=== PATIENT | female | born 1970 | race Caucasian/White ===

== ENCOUNTER → 2016-11-12 08:15 | Day surgery (SDC) | payer BC ==
[~2016-11-12 08:15] MED LIST: Acetaminophen TAB* 325 MG PO PRN; Buffered Lidocaine 1% SYR 3ML* 3 ML/SYR SYRINGE INTRADERM ONE; Buffered Lidocaine 1% SYR 3ML* 3 ML/SYR SYRINGE ONE; Flurbiprofen 0.03% OPTH.SOL* 2.5 ML BTL ONE; Lidocaine 1% MPF* 2 ML VIAL ONE; Lidocaine 2% EPI 1:200000 MPF* 20 ML VIAL ONE; Midazolam* 1 MG/ML 2 ML VIAL (2 MG) ONE; Neomycin/Polymy/Dex OPTH.SUSP* MAXITROL 0.1% 5 ML ONE; Phenylephrine 2.5% OPTH.SOL* 2 ML BTL ONE; Povidone Iodine 5% OPTH* 30 ML BTL ONE; Proparacaine 0.5% OPHTH.SOL* 15 ML BTL ONE; acetaZOLAMIDE TAB* 250 MG ONE; fentaNYL* 50 MCG/ML 2 ML VIAL (100 MCG VIAL) ONE
[2016-11-12 11:46] VITALS: BP 105/71
--- NOTE | 2016-11-12 22:57 | OP ---
DATE OF OPERATION: 11/12/16 - [facility] DATE OF : 68 SURGEON: Kamari Holland M.D. PREOPERATIVE DIAGNOSIS: Cataract, right eye. POSTOPERATIVE DIAGNOSIS: Cataract, right eye. OPERATIVE PROCEDURE: Phacoemulsification, right eye, with IOL, and iStent. DESCRIPTION OF PROCEDURE: The patient was brought to the operating room after being given 1/2% Alcaine with epinephrine drops in the preoperative area. The eye was prepped and draped in the usual sterile fashion. Sterile drape and eyelid speculum were placed. Again, topical 1/2% Alcaine with epinephrine was given. A paracentesis incision was made at the 9 o'clock position with the No.75 blade. Clear cornea incision 2.2 x 2.2-mm was created at the 12 o'clock position starting at the anterior limbus using the 2.2-mm keratome. The anterior chamber was irrigated with 0.4 mL of 1% non-preservative intracameral lidocaine and filled with DisCoVisc. A capsulorrhexis was completed using the cystotome and the Utrata forceps. Hydrodissection was performed with balanced salt solution. The lens nucleus was removed with the Phacoemulsification handpiece without incident. Cortex was removed with the irrigation-aspiration handpiece. The capsular bag was re-inflated using DisCoVisc and an SN60WF 19- diopter implant was inserted with the shooter followed by a Glaukos iStent GTS- 100L inserted into the trabecular meshwork at the 3 o'clock position with a shooter. The irrigation-aspiration handpiece was used to remove all residual DisCoVisc. The eye was refilled with balanced salt solution and the wound checked and found to be watertight. Topical Maxitrol drops were given. [id number]/[facility] #: [id number] [facility]EN'[facility] HOSPITALSregio
== END | disposition home or self-care (01) ==
LOC: OREAST 08:15
PROVIDERS: ATTEND Specialist
DX: H25.11 Age-related nuclear cataract, right eye (principal); H40.1132 Primary open-angle glaucoma, bilateral, moderate stage; J45.909 Unspecified asthma, uncomplicated; Z68.31 Body mass index [BMI] 31.0-31.9, adult; Z85.71 Personal history of Hodgkin lymphoma
CPT/HCPCS: A9270-GY; C1783; J2250; J3010; V2632

== ENCOUNTER 2018-08-12 09:02 | Emergency (ER) | payer BC ==
[2018-08-12] MEDS ORDERED: Ondansetron ODT TAB* 4 MG PO ONE (09:37)
--- NOTE | 2018-08-12 09:41 | ED ---
Head Injury - HPI Summary HPI Summary: 48 y/o female presents to ED c/o constant, moderate to severe NEUMANN starting 2 days ago s/p fall. Pt lost balance while walking into a store, fell backwards and hit her head on a car. No LOC. NEUMANN located at the back of the head on the R side. Associated sx: nausea, bilateral arm weakness, "doesn't feel right". Denies neck pain. Pain rated 6/10 in severity. - History Of Current Complaint Chief Complaint: EDHeadInjury Stated Complaint: HEAD INJURY Time Seen by Provider: 08/12/18 09:31 Hx Obtained From: Patient Mechanism Of Injury: Fall From A Standing Position Onset/Duration: Started Days Ago Onset of Pain: Immediate Pain Intensity: 6 Pain Scale Used: 0-10 Numeric Location of Head Injury: Occipital Associated Signs And Symptoms: Nausea, Other: - Weakness in arms - Allergies/Home Medications Allergies/Adverse Reactions: Allergies Allergy/AdvReac Type Severity Reaction Status Date / Time MS Levofloxacin Allergy Mild See Comment Verified 11/12/16 08:49 [From Levaquin] MS Amoxicillin Allergy Rash Verified 11/12/16 08:49 [From Augmentin] MS Cefaclor [From Ceclor] Allergy Rash Verified 11/12/16 08:49 MS Cefuroxime [From Ceftin] Allergy Rash Verified 11/12/16 08:49 MS Clavulanic Acid Allergy Rash Verified 11/12/16 08:49 [From Augmentin] MS Ibuprofen [From Motrin] Allergy Anaphylatic Verified 11/12/16 08:49 Shock MS Loracarbef [From Lorabid] Allergy Rash Verified 11/12/16 08:49 MS Penicillin G Allergy Anaphylatic Verified 11/12/16 08:49 [Penicillin G] Shock MS Sulfamethoxazole Allergy See Comment Verified 11/12/16 08:49 w/Trimethoprim [From Bactrim] MS Theophylline Allergy Rash Verified 11/12/16 08:49 [Theophylline] iv contrast dye Allergy Severe Difficulty Uncoded 11/06/16 13:01 Breathing VISINE Allergy Intermediate Swelling Uncoded 11/06/16 13:01 Home Medications: Home Medications Netarsudil Mesylate [Rhopressa] 1 drop RIGHT EYE QPM 08/12/18 [History Confirmed 08/12/18] PMH/Surg Hx/FS Hx/Imm Hx Previously Healthy: No Endocrine/Hematology History: Reports: Other Endocrine/Hematological Disorders - Hodgkin's Denies: Hx Anticoagulant Therapy, Hx Diabetes, Hx Thyroid Disease Cardiovascular History: Denies: Hx Hypertension, Hx Pacemaker/ICD, Other Cardiovascular Problems/ Disorders Respiratory History: Reports: Hx Asthma - PATIENT STATES WELL CONTROLLED, Hx Seasonal Allergies Denies: Hx Chronic Obstructive Pulmonary Disease (COPD), Other Respiratory Problems/Disorders GI History: Denies: Other GI Disorders History: Denies: Hx Renal Disease Musculoskeletal History: Reports: Hx Back Problems - chronic low back pain, Hx Orthopedic Injury - (right) knee ACL surgery Denies: Other Musculoskeletal History Sensory History: Reports: Hx Cataracts - BILATERAL, Hx Contacts or Glasses - CAN 'T SEE WITHOUT GLASSES, Hx Glaucoma - GLAUCOMA IN BOTH EYES Denies: Hx Hearing Aid Opthamlomology History: Reports: Hx Cataracts - BILATERAL, Hx Contacts or Glasses - CAN'T SEE WITHOUT GLASSES, Hx Glaucoma - GLAUCOMA IN BOTH EYES Neurological History: Reports: Hx Seizures - LAST SEIZURE- 10/09/2016- [facility] -, Other Neuro Impairments/Disorders - METABOLIC SEIZURES Denies: Hx Dementia Psychiatric History: Denies: Hx Substance Abuse - Cancer History Cancer Type, Location and Year: DX. WITH NANCY DISEASE ABOUT 13YEARS AGO Hx Chemotherapy: Yes - [facility]- IN REMISSION X 16 YEARS Hx Radiation Therapy: No - Surgical History Surgery Procedure, Year, and Place: RIGHT Ankle surgery X - [facility]. RIGHT foot surgery[place]. [place] [facility] [place] [facility] [place] [facility]. RIGHT EYE TRAB[place]OM[place] [facility] [place] AND LEFT. 11/2015-RIGHT EYE TRABEC[place]LECTOMY[place] [facility] [place] Hx Anesthesia Reactions: No - Immunization History Date of Tetanus Vaccine: UNKOWN Immunizations Up to Date: Yes Infectious Disease History: No Infectious Disease History: Denies: Hx Hepatitis, Hx Human Immunodeficiency Virus (HIV), Traveled Outside the [place] in Last 30 Days - Social History Alcohol Use: None Hx Substance Use: No Substance Use Type: Reports: None Hx Tobacco Use: No Smoking Status (MU): Never Smoked Tobacco Have You Smoked in the Last Year: No Review of Systems Constitutional: Negative Eyes: Negative Negative: Blurred Vision ENT: Negative Cardiovascular: Negative Respiratory: Negative Positive: Nausea. Negative: Abdominal Pain, Vomiting Genitourinary: Negative Musculoskeletal: Negative Skin: Negative Positive: Headache, Weakness - arms Psychological: Normal All Other Systems Reviewed And Are Negative: Yes Physical Exam - Summary Physical Exam Summary: VITAL SIGNS: Reviewed. GENERAL: Patient is a well-developed and nourished female who is lying comfortable in the stretcher. Patient is not in any acute respiratory distress. HEAD AND FACE: No signs of trauma. No ecchymosis, hematomas or skull depressions. No sinus tenderness. EYES: PERRLA, EOMI x 2, No injected conjunctiva, no nystagmus. EARS: Hearing grossly intact. Ear canals and tympanic membranes are within normal limits. MOUTH: Oropharynx within normal limits. NECK: Supple, trachea is midline, no adenopathy, no JVD, no carotid bruit, no c- spine tenderness, neck with full ROM. CHEST: Symmetric, no tenderness at palpation LUNGS: Clear to auscultation bilaterally. No wheezing or crackles. CVS: Regular rate and rhythm, S1 and S2 present, no murmurs or gallops appreciated. ABDOMEN: Soft, non-tender. No signs of distention. No rebound no guarding, and no masses palpated. Bowel sounds are normal. EXTREMITIES: FROM in all major joints, no edema, no cyanosis or clubbing. NEURO: Alert and oriented x 3. No acute neurological deficits. Speech is normal and follows commands. SKIN: Dry and warm GCS Scale: 15 Triage Information Reviewed: Yes Vital Signs On Initial Exam: Initial Vitals Temp Pulse Resp BP Pulse Ox 97.4 F 58 19 119/78 100 08/12/18 09:22 08/12/18 09:22 08/12/18 09:22 08/12/18 09:22 08/12/18 09:22 Vital Signs Reviewed: Yes Diagnostics - Vital Signs Vital Signs Temp Pulse Resp BP Pulse Ox 08/12/18 09:22 97.4 F 58 19 119/78 100 - Laboratory Lab Statement: Any lab studies that have been ordered have been reviewed, and results considered in the medical decision making process. - CT BRAIN CT CT Interpretation: No Acute Changes - No acute intracranial pathology CT Interpretation Completed By: Radiologist - ED physician reviews and agrees Head Injury Course/Dx Assessment/Plan: 48 y/o female presents to ED c/o constant, moderate to severe NEUMANN starting 2 days ago s/p fall. Pt lost balance while walking into a store, fell backwards and hit her head on a car. No LOC. NEUMANN located at the back of the head on the R side. Associated sx: nausea, bilateral arm weakness, "doesn't feel right". Denies neck pain. Pain rated 6/10 in severity. In the ED course and the patient was given Zofran for nausea. She reports no vomiting. Head CT impression: No acute intracranial pathology. The patient continues to be neurological intact and she has no acute neurological focal deficits. The patient is ambulating good steady walk and she doesnt have any ataxia. I discussed all the findings and test results with the patient. Patient was instructed to return to the emergency room immediately if any of the symptoms return or worsens. Plan of care was discussed with the patient and understands and agrees. All questions were answered at patient satisfaction. There were no further complaints or concerns. Lung exam before discharge: CTA B/L. Good air exchange. No wheezing or crackles heard. CVS: S1 and S2 present. No murmurs appreciated. Patient is alert and oriented x 3. Patient is hemodynamically stable. Patient will be discharged home with follow up PCP in the next 2-3 days - Diagnoses Differential Diagnosis/HQI/PQRI: Cerebral Contusion, Cervical Sprain, Concussion Without LOC, Contusion, Hematoma, Intracranial Bleed, Skull Fracture Provider Diagnoses: Head contusion Discharge - Sign-Out/Discharge Documenting (check all that apply): Patient Departure - Discharge Plan Condition: Stable Disposition: HOME Prescriptions: Ondansetron TAB* [Zofran 4 MG Tab*] 4 mg PO Q6H PRN #10 tab PRN Reason: Nausea Patient Education Materials: Head Injury (ED), Contusion in Adults (ED) Forms: *Work Release Referrals: Tish Burt MD [Primary Care Provider] - Additional Instructions: RETURN TO THE ED FOR WORSENING SYMPTOMS - Billing Disposition and Condition Condition: STABLE Disposition: Home - Attestation Statements Document Initiated by Edelmiraibalisha: Yes Documenting Scribe: Praneeth Evans Provider For Whom Abhijeet is Documenting (Include Credential): Yunior Duarte MD Scribe Attestation: Praneeth Pulido, scribed for Yunior Duarte MD on 08/12/18 at 1345. Scribe Documentation Reviewed: Yes Provider Attestation: The documentation as recorded by the Praneeth pepe accurately reflects the service I personally performed and the decisions made by me, Yunior Duarte MD
--- NOTE | 2018-08-12 10:00 | RAD ---
HISTORY: Headache COMPARISONS: August 05, 2012, MRI of the head dated December 27, 2004 TECHNIQUE: Multiple contiguous axial CT scans were obtained of the head without intravenous contrast. FINDINGS: HEMORRHAGE/INFARCT: There is no hemorrhage or acute infarct. MASSES/SHIFT: There is no mass or shift. EXTRA-AXIAL SPACES: There are no extra-axial fluid collections. SULCI AND VENTRICLES: The sulci and ventricles are normal in size and position for the patient's stated age. CEREBRUM: There are no focal parenchymal abnormalities. BRAINSTEM: There are no focal parenchymal abnormalities. CEREBELLUM: There are no focal parenchymal abnormalities. VESSELS: The vessels are grossly normal. PARANASAL SINUSES: The paranasal sinuses are clear. ORBITS: The orbits are unremarkable. BONES AND SOFT TISSUE: No bone or soft tissue abnormalities are noted. OTHER: None IMPRESSION: NO ACUTE INTRACRANIAL PATHOLOGY.
[2018-08-12 11:01] VITALS: BP 130/81
== END 2018-08-12 11:00 | disposition home or self-care (01) ==
LOC: ED 09:02
DX: S00.03XA Contusion of scalp, initial encounter (principal); M54.5 Low back pain; G89.29 Other chronic pain; W19.XXXA Unspecified fall, initial encounter; Y92.9 Unspecified place or not applicable; Z85.71 Personal history of Hodgkin lymphoma
CPT/HCPCS: 70450; 99282; A9270-GY

== ENCOUNTER 2018-10-13 07:16 | Day surgery (SDC) | payer BC ==
[~2018-10-13 07:16] MED LIST changes: -Acetaminophen TAB* 325 MG PO PRN; +Acetylcholine 1:100 OPTH* OPHTH.SOLN ONE; +Atropine 1% OPHTH.SOL* 2 ML BOT - 2 ML ONE; +BSS OPTH.SOL* BTL ONE; +Buffered Lidocaine 0.9% SYRIN* 5 ML/SYR SYRINGE INTRADERM ONE; -Buffered Lidocaine 1% SYR 3ML* 3 ML/SYR SYRINGE INTRADERM ONE; -Buffered Lidocaine 1% SYR 3ML* 3 ML/SYR SYRINGE ONE; +Bupivacaine 0.25% SDV PF* 10 ML VIAL INJ ONE; +Dexamethasone IV* 4 MG/ML 1 ML (4 MG) IV SLOW PU ONE; +Dexamethasone IV* 4 MG/ML 1 ML (4 MG) ONE; +Famotidine IV* 10 MG/ML 2 ML (20 mg) IV ONE; +Famotidine IV* 10 MG/ML 2 ML (20 mg) ONE; -Flurbiprofen 0.03% OPTH.SOL* 2.5 ML BTL ONE; +Hyaluronidase OVINE* 200 UNIT/ML ML SUBCUT ONE; -Lidocaine 1% MPF* 2 ML VIAL ONE; -Lidocaine 2% EPI 1:200000 MPF* 20 ML VIAL ONE; +Lidocaine 2% EPI 1:200000 MPF*10-20 ML VIAL ONE; -Midazolam* 1 MG/ML 2 ML VIAL (2 MG) ONE; -Phenylephrine 2.5% OPTH.SOL* 2 ML BTL ONE; +Sodium Bicarbonate 8.4% SYR* 10 ML SYRINGE ONE; +Triamcinolone Acetonide* 40 MG/ML 1 ML VIAL ONE; -acetaZOLAMIDE TAB* 250 MG ONE; -fentaNYL* 50 MCG/ML 2 ML VIAL (100 MCG VIAL) ONE
[2018-10-13] MEDS ORDERED: Bupivacaine 0.25% SDV PF* 10 ML VIAL INJ ONE (08:00)
[2018-10-13] MEDS ORDERED: Midazolam* 1 MG/ML 2 ML VIAL (2 MG) ONE (08:20)
[2018-10-13] MEDS ORDERED: Ondansetron INJ* 2 MG/ML VIAL ONE (08:32)
[2018-10-13] MEDS ORDERED: fentaNYL* 50 MCG/ML 2 ML VIAL (100 MCG VIAL) ONE (08:32)
[2018-10-13] MEDS ORDERED: Propofol* 10 MG/ML 20 ML BTL ONE (08:32)
[2018-10-13] MEDS ORDERED: Naloxone* 0.4 MG/ML 1 ML VIAL IV PRN (10:13)
[2018-10-13 10:16] VITALS: BP 111/61
--- NOTE | 2018-10-13 13:01 | OP ---
DATE OF OPERATION: 10/13/18 [facility] DATE OF : 68 SURGEON: Kamari Holland MD ANESTHESIA: Local with MAC. PRE-OP DIAGNOSIS: Uncontrolled glaucoma, right eye. POST-OP DIAGNOSIS: Uncontrolled glaucoma, right eye. OPERATIVE PROCEDURE: Ahmed valve with donor sclera right eye. COMPLICATIONS: None. DESCRIPTION OF PROCEDURE: The patient was given retrobulbar anesthesia in the operating room, a 50:50 mixture of 0.25 Marcaine and 2% lidocaine with epinephrine and Vitrase 4 cc injected into the muscle cone without difficulty. A 6-0 silk superior limbal traction suture placed and the eye was rotated inferiorly. A fornix-based conjunctival peritomy was performed from the 10 o' clock to 12 o'clock position with Marty scissors. Hemostasis was achieved with cautery. The SP7 Ahmed valve was placed on the bare sclera and the footplate suture to bare sclera approximately 10 mm posterior to the limbus. Anterior chamber entered using a 27-gauge needle at the 11 o'clock position. Tube trimmed and placed into the anterior chamber. Tube sutured at the sclera with two 10-0 Prolene sutures and the donor sclera cut to cover the tube and sutured in place with four interrupted 10-0 nylon sutures. The incision was closed using a running locking 10-0 nylon suture and a running locking 10-0 Vicryl suture. After this was completed and the anterior chamber refilled, I felt like the tube was too close to the cornea, so the incision was reopened, the tube repositioned more posteriorly and trimmed a little bit, and the incision closed again in the same manner. Topical atropine and Maxitrol were given. The traction sutures removed and the eye was thoroughly patched. [id number]/[facility] #: [id number] MTDD
== END 2018-10-13 10:27 | disposition home or self-care (01) ==
LOC: OREAST 07:16
PROVIDERS: ATTEND Specialist
DX: H40.1122 Primary open-angle glaucoma, left eye, moderate stage (principal); Z96.1 Presence of intraocular lens; Z79.899 Other long term (current) drug therapy
CPT/HCPCS: 87073; A9270-GY; C1783; J1100; J2250; J2405; J2704; J3010; J3301; J3471; J3490

== ENCOUNTER → 2019-01-19 07:00 | Day surgery (SDC) | payer BC ==
[~2019-01-19 07:00] MED LIST changes: +Acetaminophen TAB* 325 MG PO PRN; -Acetylcholine 1:100 OPTH* OPHTH.SOLN ONE; -Atropine 1% OPHTH.SOL* 2 ML BOT - 2 ML ONE; -BSS OPTH.SOL* BTL ONE; -Buffered Lidocaine 0.9% SYRIN* 5 ML/SYR SYRINGE INTRADERM ONE; +Buffered Lidocaine 1% SYRIN* 1 ML/SYRINGE INTRADERM ONE; -Bupivacaine 0.25% SDV PF* 10 ML VIAL INJ ONE; -Dexamethasone IV* 4 MG/ML 1 ML (4 MG) IV SLOW PU ONE; -Dexamethasone IV* 4 MG/ML 1 ML (4 MG) ONE; -Famotidine IV* 10 MG/ML 2 ML (20 mg) IV ONE; -Famotidine IV* 10 MG/ML 2 ML (20 mg) ONE; -Hyaluronidase OVINE* 200 UNIT/ML ML SUBCUT ONE; -Lidocaine 2% EPI 1:200000 MPF*10-20 ML VIAL ONE; +Midazolam* 1 MG/ML 2 ML VIAL (2 MG) ONE; -Neomycin/Polymy/Dex OPTH.SUSP* MAXITROL 0.1% 5 ML ONE; -Povidone Iodine 5% OPTH* 30 ML BTL ONE; -Proparacaine 0.5% OPHTH.SOL* 15 ML BTL ONE; -Sodium Bicarbonate 8.4% SYR* 10 ML SYRINGE ONE; -Triamcinolone Acetonide* 40 MG/ML 1 ML VIAL ONE
[2019-01-19 09:37] VITALS: BP 108/69
== END | disposition home or self-care (01) ==
LOC: MERGE 07:00 → OREAST 07:00 → EDBD 12:15
PROVIDERS: ATTEND Specialist
DX: H40.1122 Primary open-angle glaucoma, left eye, moderate stage (principal); H40.51X3 Glaucoma secondary to other eye disorders, right eye, severe stage; Z96.1 Presence of intraocular lens; G40.109 Localization-related (focal) (partial) symptomatic epilepsy and epileptic syndromes with simple partial seizures, not intractable, without status epilepticus; J45.909 Unspecified asthma, uncomplicated
CPT/HCPCS: A9270-GY; C1725; J2250; J9280

== ENCOUNTER 2019-01-19 07:07 | Day surgery (SDC) | payer BC ==
[~2019-01-19 07:07] MED LIST changes: -Acetaminophen TAB* 325 MG PO PRN; -Buffered Lidocaine 1% SYRIN* 1 ML/SYRINGE INTRADERM ONE; -Midazolam* 1 MG/ML 2 ML VIAL (2 MG) ONE; +mitoMYcin 0.2 MG (0.02%) in Sterile Water for Inj* 1 ML OPHTHALMIC SCH
[2019-01-19] MEDS ORDERED: Proparacaine 0.5% OPHTH.SOL* 15 ML BTL ONE (10:02)
[2019-01-19] MEDS ORDERED: Lidocaine 1%* 5 ML VIAL ONE (10:02)
[2019-01-19] MEDS ORDERED: Lidocaine 2% EPI 1:200000 MPF*10-20 ML VIAL ONE (10:02)
[2019-01-19] MEDS ORDERED: Povidone Iodine 5% OPTH* 30 ML BTL ONE (10:02)
[2019-01-19] MEDS ORDERED: Neomycin/Polymy/Dex OPTH.SUSP* MAXITROL 0.1% 5 ML ONE (10:02)
--- NOTE | 2019-01-19 10:41 | OP ---
Amended report to correct patient account number. OPERATIVE NOTE: DATE OF OPERATION: 01/19/19 DATE OF : 68 SURGEON: Kamari Holland M.D. PREOPERATIVE DIAGNOSIS: Uncontrolled glaucoma, left. POSTOPERATIVE DIAGNOSIS: Uncontrolled glaucoma, left. OPERATIVE PROCEDURE: XEN stent, left. ANESTHESIA: Local with MAC. COMPLICATIONS: None. OPERATIVE NOTE: The patient was given topical 2% lidocaine with epinephrine. Lid speculum was placed. Conjunctival marking 7 mm posterior to limbus was made at the 11 o'clock position. The XEN stent inserted externally subconjunctivally and then entering the sclera 3 mm posterior to the limbus and then entering the anterior chamber was implanted using the shooter. Mitomycin C 0.2 mg/mL was injected subconjunctivally in the area of the stent. Paracentesis made at the 3 o'clock. Anterior chamber irrigated with balanced salt solution. Topical Maxitrol drops were given. [id number]/[facility] #: [id number] MTDD
== END 2019-01-19 09:30 | disposition home or self-care (01) ==
LOC: OREAST 07:07
PROVIDERS: ATTEND Specialist
DX: H40.1122 Primary open-angle glaucoma, left eye, moderate stage (principal)
CPT/HCPCS: A9270-GY; J9280

== ENCOUNTER 2019-02-02 07:04 | Day surgery (SDC) | payer BC ==
[~2019-02-02 07:04] MED LIST changes: +Acetaminophen TAB* 325 MG PO PRN; +Buffered Lidocaine 1% SYRIN* 1 ML/SYRINGE INTRADERM ONE; -mitoMYcin 0.2 MG (0.02%) in Sterile Water for Inj* 1 ML OPHTHALMIC SCH; +mitoMYcin 0.2 MG (0.02%) in Sterile Water for Inj* 1 ML SCH
[2019-02-02] MEDS ORDERED: Midazolam* 1 MG/ML 2 ML VIAL (2 MG) ONE (08:46)
[2019-02-02] MEDS ORDERED: fentaNYL* 50 MCG/ML 2 ML VIAL (100 MCG VIAL) ONE (08:46)
[2019-02-02 09:50] VITALS: BP 99/60
[2019-02-02] MEDS ORDERED: Povidone Iodine 5% OPTH* 30 ML BTL ONE (09:58)
[2019-02-02] MEDS ORDERED: Lidocaine 2% EPI 1:200000 MPF*10-20 ML VIAL ONE (09:58)
[2019-02-02] MEDS ORDERED: Proparacaine 0.5% OPHTH.SOL* 15 ML BTL ONE (09:58)
[2019-02-02] MEDS ORDERED: Lidocaine 1%* 5 ML VIAL ONE (09:58)
[2019-02-02] MEDS ORDERED: Neomycin/Polymy/Dex OPTH.SUSP* MAXITROL 0.1% 5 ML ONE (09:58)
--- NOTE | 2019-02-02 11:06 | OP ---
OPERATIVE REPORT: DATE OF OPERATION: 02/02/19 DATE OF : 68 SURGEON: Kamari Holland MD ANESTHESIA: Local with MAC. PRE-OP DIAGNOSIS: Uncontrolled glaucoma, right. POST-OP DIAGNOSIS: Uncontrolled glaucoma, right. OPERATIVE PROCEDURE: XEN implant, right. COMPLICATIONS: None. DESCRIPTION OF PROCEDURE: The patient was prepped and draped in the usual sterile fashion. A lid sp eculum was placed. A paracentesis made with 75 blade at the 11 o'clock position. A 1% non-preserved intracameral lidocaine injected into the anterior chamber followed by ProVisc. Clear corneal 1.8 mm incision was made at the 7 o'clock position. The XEN implant placed subconjunctivally with its shoo ter without incident. Mitomycin-C 0.2 mg/mL infused at the opening of the XEN implant. Anterior noelle rachel irrigated thoroughly with balanced salt solution. [id number]/[facility] [place] #: [id number]
== END 2019-02-02 09:45 | disposition home or self-care (01) ==
LOC: OREAST 07:04 → MERGE 09:15 → OREAST 09:45
PROVIDERS: ATTEND Specialist
DX: H40.1113 Primary open-angle glaucoma, right eye, severe stage (principal); Z88.0 Allergy status to penicillin; Z88.8 Allergy status to other drugs, medicaments and biological substances; J45.909 Unspecified asthma, uncomplicated; G40.802 Other epilepsy, not intractable, without status epilepticus; Z85.71 Personal history of Hodgkin lymphoma
CPT/HCPCS: A9270-GY; C1725; J2250; J3010; J9280

== ENCOUNTER → 2019-03-24 14:53 | Emergency (ER) | payer BC ==
--- OUTSIDE RECORDS SUMMARY | 2019-03-24 15:03 | XMS REPORT | Continuity of Care Document ---
:1970 External Reference #:[id number] Author Name Kamari Holland M.D. Address [address] [place] [address] Care Team Providers Name Role Phone Tish Burt M.D. 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 Onset: 05/01/2015 Pigmentary glaucoma Kamari Holland M.D. Onset: 05/01/2015 Primary open angle glaucoma Kamari Holland M.D. 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 Onset: 2014 Severe / Advanced / End Stage Glaucoma Kamari Holland M.D. Onset: 2014 Primary open-angle glaucoma, severe stage Kamari Holland M.D. Onset: 2014 Bilateral primary open angle glaucoma Kamari Holland M.D. Onset: 09/30/2016 Bilateral primary open angle glaucoma Kamari Holland M.D. Onset: 11/13/2016 Presence of intraocular lens Kamari Holland M.D. Onset: 11/13/2016 Carpal tunnel syndrome Onset: Other secondary cataract, right eye Brielle Lang O.D. Onset: 2016 Primary iridocyclitis Kamari Holland M.D. Onset: 08/14/2017 Concussion with no loss of consciousness Kamari Holland M.D. Onset: 2017 Glaucoma secondary to other eye disorders, Kamari Holland M.D. Onset: 11/11 right eye, severe stage Seizure disorder Onset: Allergic contact dermatitis of eyelid Brielle Lang O.D. 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 ETOH Use Rarely consumes alcohol Tobacco Use Start: Unknown Patient has never smoked Recreational Drug Use Denies Drug Use Smoking Status Reviewed: 03/11/19 Patient has never smoked Allergies, Adverse Reactions, Alerts Active Allergies Reaction Severity Comments Date Penicillin 05/01/2015 Motrin 05/01/2015 Ceftin 05/01/2015 Theophylline 05/01/2015 Ceclor 05/01/2015 Lorabid 05/01/2015 Bactrim toxic reaction with Tegretol 05/01/2015 Visine 05/01/2015 Augmentin 05/07/2015 Levaquin 05/11/2015 Iodinated Diagnostic Agents 05/11/2015 Alphagan 12/23/2018 Medications Active Medications SIG Qnty Indications Ordering Provider Date Zioptan 1 drop left eye 90units Kamari Holland, 03/10/2019 0.0015% 1 x day M.D. Solution Timolol Maleate 1 drop both 10ml Kamari Holland, 02/22/2019 0.5% eyes twice a M.D. Solution day Tegretol Unknown 200mg Tablets Tylenol Extra 2 tabs every 3 Unknown Strength hours 500mg Tablets Keppra 5 in am and 6 Unknown 500mg Tablets in pm History Medications Vigamox One drop right eye 3ml Kamari Barrett 02/02/2019 - 0.5% Solution three times per Tamara Holland 02/23/2019 day Fluorouracil bring bottle with 10ml Kamari Barrett 01/20/2019 - you to your Tamara Holland 02/06/2019 500mg/10ML Solution appointment Pred Forte one drop both eyes 10ml Kamari Barrett 01/19/2019 - 1% three times a day Tamara Holland 02/23/2019 Suspension Vigamox one drop left eye 3ml Kamari Barrett 01/11/2019 - 0.5% Solution three times a day, Tamara Holland 01/26/2019 start the day before surgery Prolensa 1 drop both eyes Unknown 01/05/2019 - 0.07% once a day 01/06/2019 Solution Baby Shampoo bid Kamari Barrett 01/05/2019 - Shampoo Tamara Holland 01/06/2019 Refresh Preservative During the day Kamari Barrett 01/05/2019 - Free Gel Tamara Holland 01/06/2019 Timoptic Ocudose One drop once per 120units H40.51x Melia Soni 12/21/2018 - 0.5% day left eye 3 Gretna, O.DFaith 02/23/2019 Solution Timolol Maleate 1 drop both eyes 45ml Melia Soni 12/19/2018 - 0.25% daily Artemio, O.DFaith 12/21/2018 Solution Cosopt PF 1 drop twice daily 180units H40.51x Brielle Barrett 12/13/2018 - both eyes 3 Stockwendy, O.DFaith 12/20/2018 22.3-6.8mg/ml Solution Zioptan 1 drop both eyes 90units H40.51x Brielle Barrett 12/13/2018 - 0.0015% at bedtime 3 Rickey, O.DFaith 01/06/2019 Solution Travatan Z 1 drop left eye 15ml Melia Soni 10/29/2018 - 0.004% every night Artemio O.DFaith 12/10/2018 Solution Phenylephrine HCL Instill 1 Drop 4 15ml H40.111 Melia Soni 10/15/2018 - Times A Day In The 3 Suzanne Ulloa 10/27/2018 2.5% Solution Right Eye Prednisolone Acetate One drop right eye 15ml Kamari Barrett 10/11/2018 - Every 2 Hours Tamara Holland 10/30/2018 1% Suspension Vigamox one drop right eye 3ml Kamari Barrett 10/11/2018 - 0.5% Solution three times a day, Tamara Holland 10/20/2018 start the day before surgery Prednisolone Acetate 1 drops right eye 15ml Kamari Barrett 08/12/2018 - three times a day. Tamara Holland 07/31/2018 1% Suspension taper as directed Rhopressa 1 drop both eyes 5ml Kamari Barrett 08/02/2018 - 0.02% once a day Tamara Holland 01/06/2019 Solution Pred Forte one drop 4 Times Kamari Barrett 08/02/2018 - 1% Daily Right Eye Tamara Holland 08/07/2018 Suspension Only, If Feels Worse Go Back To Every 2 Hours Rhopressa 1 drop every day 5ml H40.113 Melia Soni 04/30/2018 - 0.02% right eye 3 Suzanne Ulloa 07/01/2018 Solution Prednisolone Acetate 1 drop right eye 2 10ml H20.011 Kamari Barrett 04/26/2018 - times a day Tamara Holland Unknown 1% Suspension Prednisolone Acetate One drop right eye 15ml H20.011 Kamari Barrett 08/17/2017 - every hour for Tamara Holland 09/15/2017 1% Suspension today, then six times a day right eye Pred Forte one drop right eye 20ml H20.011 Kamari Barrett 08/14/2017 - 1% every hour Tamara Holland 08/19/2017 Suspension Acetazolamide 1 tab by mouth 4 30tabs H20.011 Kamari Barrett 08/14/2017 - 250mg times daily. Tamara Holland 08/15/2017 Tablets Acetazolamide ER take 1 capsule by H20.011 Kamari Barrett 08/13/2017 - mouth twice a day Tamara Holland 09/07/2017 500mg as directed Timolol Maleate one drop both eyes 5units H40.113 Melia Soni 11/26/2016 - 0.5% once a day 2 Suzanne Ulloa 12/10/2018 Solution Simbrinza 1 drop Both Eyes 16units Kamari Barrett 11/25/2016 - 1-0.2% twice a day Tamara Holland 12/10/2018 Suspension Prednisolone Acetate 1 drops right eye 15ml Kamari Barrett 10/21/2016 - three times a day. Tamara Holland 11/27/2016 1% Suspension taper as directed Ketorolac use one drop in 10ml Kamari Barrett 10/21/2016 - Tromethamine the right eye Tamara Holland 10/21/2016 0.5% three times a day, Solution start the day before surgery Ciprofloxacin HCL instill one drop 10ml Kamari Barrett 10/21/2016 - in the right eye Tamara Holland 11/16/2016 0.3% Solution three times a day, start the day before surgery Simbrinza Instill 1 Drop 8units H40.11x Kamari Barrett 07/17/2016 - 1-0.2% Into Both Eyes Two 3 Tamara Holland 11/19/2016 Suspension Times Daily Atropine Sulfate 1 drop right eye 5ml Kamari Barrett 03/14/2016 - 1% three times a day Tamara Holland 04/04/2016 Solution Vigamox one drop right eye 6ml Kamari Barrett 02/18/2016 - 0.5% Solution three times a day, Tamara Holland 03/16/2016 start the day before surgery Prednisolone Acetate One drop 3 times a 15ml Kamari Barrett 02/18/2016 - day in the right Tamara Holland 06/19/2016 1% Suspension eye Simbrinza 1 drop right eye 8ml H40.11x Kamari Barrett 02/14/2016 - 1-0.2% twice a day 3 Tamara Holland 04/03/2016 Suspension Travatan Z Instill 1 Drop In 7.5units Kamari Barrett 02/13/2016 - 0.004% The Right Eye Tamara Holland 10/27/2018 Solution Every Evening Atropine Sulfate 1 drop right eye 5ml Kamari Barrett 11/18/2015 - 1% three times a day Tamara Holland 10/22/2018 Solution Atropine Sulfate 1 drop right eye 5ml Brielle Barrett 11/08/2015 - 1% three times a day Suzanne Lang 11/18/2015 Solution Vigamox one drop right eye 3ml H40.11x Kamari Barrett 10/23/2015 - 0.5% Solution three times a day, 3 Tamara Holland 11/18/2015 start the day before surgery Prednisolone Acetate 1 drops right eye 10ml H40.11x Kamari Barrett 10/23/2015 - six times a day 3 Tamara Holland 12/03/2015 1% Suspension Azopt 1 drop Right eye H40.11x Kamari Barrett 10/08/2015 - 1% Suspension twice a day 3 Tamara Holland 11/18/2015 Pilocarpine HCL instill 1 drop 30ml H40.11x Kamari Barrett 10/01/2015 - 1% four times daily 3 Tamara Holland 11/18/2015 Solution in the right eye only Combigan 1 drop right eyes 90day Kamari Barrett 06/06/2015 - 0.2-0.5% twice a day Tamara Holland 11/18/2015 Solution Pred Forte 1 drop three times 15units Kamari Barrett 05/31/2015 - 1% a day left eye Tamara Holland 06/28/2015 Suspension Atropine Sulfate 1 drop left eye 90Day Kamari Barrett 05/31/2015 - 1% three times a day Tamara Holland 06/14/2015 Solution Vigamox one drop left eye 3ml Kamari Barrett 05/31/2015 - 0.5% Solution three times a day, Tamara Holland 06/13/2015 start the day before surgery Alphagan P 1 drop right eye 90day Kamari Barrett 05/31/2015 - 0.1% twice a day Tamara Holland 06/06/2015 Solution Azopt 1 drop right eye Kamari Barrett 05/31/2015 - 1% Suspension twice a day Tamara Holland 10/08/2015 Pred Forte 1 drop right eye 15ml Kamari Herrera/15/2015 - 1% twice a day Tamara Holland 05/30/2015 Suspension Atropine Sulfate 1 drop right eye Kamari Barrett 05/10/2015 - 1% three times a day Tamara Holland 05/11/2015 Ointment Vigamox one drop right eye 3ml Kamari Barrett 05/07/2015 - 0.5% Solution three times a day, Tamara Holland 05/16/2015 start the day before surgery Pred Forte 1 drop right eye 15ml Kamari Barrett 05/07/2015 - 1% three times a day Tamara Holland 05/11/2015 Suspension Pilocarpine HCL 1 instill drop 15ml 365.11 Kamari Barrett 05/01/2015 - 1% both eyes four Tamara Holland 05/10/2015 Solution times a day four times only Levetiracetam 4 in the am and 5 Unknown - 500mg in pm 03/10/2019 Tablets Azopt 1 drop both eyes Kamari Barrett - 1% Suspension twice a day Tamara Holland 05/30/2015 Travatan Z 1 drop left eye Kamari Barrett - 0.004% every night Tamara Holland 05/30/2015 Solution Alphagan P 1 drop left eye 5ml Kamari Barrett - 0.1% twice a day Tamara Holland 05/30/2015 Solution Systane as needed Kamari Barrett - 0.4-0.3% Tamara Holland 07/24/2016 Solution Massage right eye 3 times Kamari Barrett - daily Tamara Holland 06/19/2016 Zyrtec Allergy Unknown - 10mg Unknown Tablets Prednisolone Acetate 1 drop right eye 4 15ml Brielle Barrett - times daily Suzanne Lang 09/08/2018 1% Suspension Immunizations Description No Information Available Vital Signs Date Vital Result Comment 02/10/2019 1:09pm BP Systolic 102 mmHg BP Diastolic 64 mmHg Heart Rate 60 /min Respiratory Rate 16 /min 08/09/2018 3:03pm BP Systolic 129 mmHg BP Diastolic 63 mmHg Heart Rate 64 /min Respiratory Rate 16 /min Results Test Date Facility Test Result H/L Range Note Laboratory test 10/13/2018 [facility] Anaerobic SEE RESULT 1, [address] [place] [address] (607)- - Laboratory test 10/12/2018 [facility] Sclera SEE RESULTS 3, [address] [place] <[place] [address] NOTE> (607)- - CBC Auto Diff 09/10/2018 [facility] White Blood 6.0 10 ^3/uL N 3.5-10.[address] [place] [address] (607)- - Red Blood Count 4.22 10^6/uL N 4.00-5.40 Hemoglobin 13.1 g/dL N 12.0-16.0 Hematocrit 38 % N 35-47 Mean Corpuscular Volume 90 fL N 80-97 Mean Corpuscular Hemoglobin 31 pg N 27-31 Mean Corpuscular HGB Conc 35 g/dL N 31-36 Red Cell Distribution Width 13 % N 10.5-15 Platelet Count 337 10^3/uL N 150-450 Mean Platelet Volume 6.2 fL Low 7.4-10.4 Abs Neutrophils 4.3 10^3/uL N 1.5-7.7 Abs Lymphocytes 1.1 10^3/uL N 1.0-4.8 Abs Monocytes 0.3 10^3/uL N 0-0.8 Abs Eosinophils 0.2 10^3/uL N 0-0.6 Abs Basophils 0 10^3/uL N 0-0.2 Abs Nucleated RBC 0 10^3/uL Granulocyte % 72.0 % N 38-83 Lymphocyte % 18.7 % Low 25-47 Monocyte % 5.7 % N 0-7 Eosinophil % 3.3 % N 0-6 Basophil % 0.3 % N 0-2 Nucleated Red Blood Cells % 0 Laboratory test 09/10/2018 [facility] Rheumatoid Factor 17 IU/mL High <[address] [place] [address] (607)- - Acetaminophen < 15 g/mL 5 Syphillis Igg W/Reflex RPR Nonreactive Nonreactive 6 Anca AB Ser If 09/10/2018 [facility] C-Anca Negative Negative [address] [place] [address] (607)- - P-Anca Negative Negative 7 Laboratory test 09/10/2018 [facility] Anti Nuclear 0.2 U [address] [place] [address] (607)- - Hla B27 09/10/2018 [facility] Hla B27 Negative [address] [place] [address] (607)- - Hla B27 Interp See Comment 10 1 [id number] RUSS TRIVEDI 2 SEE RESULT BELOW Name: RUSS TRIVEDI : [address]: Kamari Holland MD Acct: [id number] Unit: [id number] AGE: 48 Location: [facility] Re10/13/18 SEX: F Status: GRIFFIN SDC SPEC: [id number] MONICA: 10/13/[address] [facility] [address]: Kamari Holland MD REQ: [id number] RECD: 10/13/18 STATUS: PHIL HERZOG DR: Tish Burt MD _ SOURCE: [facility] SPDESC: ORDERED: Anaerobic Cult COMMENTS: [id number] RUSS TRIVEDI Procedure Result Reported Site CANCELLED REORDERED AN ENVIRONMENTAL CULTURE END OF REPORT DEPARTMENT OF PATHOLOGY, [address] [place] [address] Bandar Roberts M.D. Director [facility] # [id number] 3 PRIMARY OPEN ANGLE GLAUCOMA, RIGHT EYE, SEVERE STA 4 SEE RESULTS BELOW [id number] SCLERA TRANSFUSED 10/13/18 0645 5 Therapeutic concentration: <50 ug/mL Toxic concentration: >120 ug/mL 6 Warning: A positive result is not useful for establishing a diagnosis of syphilis. In most situations, such a result may reflect a prior treated infection; a negative result can exclude a diagnosis of syphilis except for incubating or early primary disease. 7 Negative for cANCA and pANCA patterns by immunofluorescence. ADDITIONAL INFORMATION This test was developed and its performance characteristics determined by [facility] in a manner consistent with CLIA requirements. This test has not been cleared or approved by the U.S. Food and Drug Administration. Test Performed by: [facility] - [address] [address] 8 REFERENCE VALUE <=1.0 (Negative) Test Performed by: [facility] - [address] [address] 9 REFERENCE VALUE Not Applicable 10 RESULT: HLA-B27 antigen was not detected. ADDITIONAL INFORMATION Method: Flow Cytometry Performing Laboratory CLIA# [id number] Test Performed by: [address] [address] Procedures Date Code Description Status 02/02/2019 0449T Xen- Shunts Aqueous From The Anterior Chamber To Completed Subcojunctival 01/19/2019 0449T Xen- Shunts Aqueous From The Anterior Chamber To Completed Subcojunctival 12/23/201833954 Est Patient Intermediate Exam Completed 10/13/2018 29813 Aqueous Shunt To Extraocular [place] Completed 10/11/2018 31000 Est Patient Intermediate Exam Completed 10/04/2018 31468 Est Patient Intermediate Exam Completed 09/09/2018 48691 Visual Field Exam Extended Completed 09/09/2018 99259 Est Patient Intermediate Exam Completed 09/07/2018 08748 Est Patient Intermediate Exam Completed 08/30/2018 71004 Est Patient Intermediate Exam Completed 08/12/2018 24107 Est Patient Intermediate Exam Completed 08/09/2018 22082 Remove Secondary Cataract, Laser (Yag) Completed 08/02/2018 19395 Est Patient Intermediate Exam Completed 07/16/2018 49948 Est Patient Intermediate Exam Completed 07/02/2018 60220 Est Patient Intermediate Exam Completed 05/07/2018 98011 Est Patient Intermediate Exam Completed 04/26/2018 22659 Est Patient Intermediate Exam Completed 04/02/2018 92266 Visual Field Exam Extended Completed 04/02/2018 11071 Est Patient Intermediate Exam Completed 12/31/2017 16968 Est Patient Intermediate Exam Completed 10/01/2017 52017 Est Patient Intermediate Exam Completed 10/01/2017 21551 Visual Field Exam Extended Completed 08/14/2017 72662 Est Patient Intermediate Exam Completed 05/04/2017 28754 Scanning Computerized Ophthalmic Diagnostic Imag Posterior Completed Seg On 05/04/2017 43932 Visual Field Exam Extended Completed 05/04/2017 37306 Est Patient Intermediate Exam Completed 02/17/2017 46384 Est Patient Intermediate Exam Completed 11/12/2016 79150 Extracapsular Cataract Extraction W/Intraocular Lens Completed 11/12/2016 0191T I-Stent Aqueous Drainage Device Completed 10/21/2016 18793 Ophthalmic Biometry Completed 09/30/2016 50004 Est Patient Intermediate Exam Completed 07/17/2016 45932 Scanning Computerized Ophthalmic Diagnostic Imag Posterior Completed Seg On 07/17/2016 70695 Visual Field Exam Extended Completed 07/17/2016 23931 Est Patient Intermediate Exam Completed 06/24/2016 12364 Est Patient Intermediate Exam Completed 03/05/2016 37441 Fistulization Sclera For Glaucoma, Trabeculectomy AB Completed Externo 11/07/2015 54488 Fistulization Sclera For Glaucoma, Trabeculectomy AB Completed Externo 05/30/2015 52130 Fistulization Sclera For Glaucoma, Trabeculectomy AB Completed Externo 05/09/2015 08905 Fistulization Sclera For Glaucoma, Trabeculectomy AB Completed Externo 05/01/2015 44200 Est Patient Intermediate Exam Completed 05/01/2015 71241 Visual Field Exam Extended Completed 05/01/2015 46446 Scanning Computerized Ophthalmic Diagnostic Imag Posterior Completed Seg On 11/27/2014 77676 Est Patient Intermediate Exam Completed 11/22/2014 45389 Visual Field Exam Extended Completed 08/14/2014 20425 Determination Of Refractive State Completed 08/14/2014 27380 Est Patient Intermediate Exam Completed 05/31/2014 48726 Visual Field Exam Extended Completed 05/18/2014 82679 Patient No Show For Appt Completed 04/04/2014 76339 Est Patient Intermediate Exam Completed 11/17/2013 65989 Est Patient Comprehensive Exam Completed 11/17/2013 95474 Visual Field Exam Extended Completed 11/17/2013 32284 Fundus Photography With Interpretation And Report Completed 07/19/2013 44746 Est Patient Intermediate Exam Completed 04/18/2013 74006 Visual Field Exam Extended Completed 04/18/2013 79565 Est Patient Intermediate Exam Completed 12/02/2012 00841 Trabeculoplasty By Laser Surgery Completed 11/25/2012 57390 Trabeculoplasty By Laser Surgery Completed 11/05/2012 51840 Scanning Computerized Ophthalmic Diagnostic Imag Posterior Completed Seg On 11/05/2012 98242 Visual Field Exam Extended Completed 11/05/2012 57771 Est Patient Comprehensive Exam Completed 06/28/2012 91457 Est Patient Intermediate Exam Completed 01/12/2012 52489 Est Patient Intermediate Exam Completed 01/12/2012 65141 Visual Field Exam Extended Completed 01/12/2012 97050 Scanning Computerized Ophthalmic Diagnostic Imag Posterior Completed Seg On 09/02/2011 28239 Trabeculoplasty By Laser Surgery Completed 08/19/2011 79680 Trabeculoplasty By Laser Surgery Completed 08/01/2011 45031 Visual Field Exam Extended Completed 08/01/2011 56790 Est Patient Intermediate Exam Completed 06/06/2011 64762 Scanning Computerized Ophthalmic Diagnostic Imag Posterior Completed Seg On 06/06/2011 58458 Est Patient Intermediate Exam Completed 02/11/2011 72940 Est Patient Intermediate Exam Completed 2011 43969 Visual Field Exam Extended Completed 03/01/2010 03781 Trabeculoplasty By Laser Surgery Completed 02/21/2010 26019 Trabeculoplasty By Laser Surgery Completed 02/15/2010 09163 Est Patient Intermediate Exam Completed 01/01/2010 94018 Iridotomy/Iredectomy By Laser Surgery Completed 12/28/2009 01356 Iridotomy/Iredectomy By Laser Surgery Completed 12/26/2009 73247 Scanning Laser W/Interp And Report Completed 12/19/2009 86102 Fundus Photography With Interpretation And Report Completed 12/19/2009 86026 Visual Field Exam Extended Completed 12/18/2009 09967 Gonioscopy Completed 12/18/2009 13731 New Patient Comprehensive Exam Completed 12/18/2009 05431 Pachymetry Completed Encounters Type Date Location Provider Dx Diagnosis Office Visit 01/11/2019 Kamari Holland, Kamari Holland, H40.1122 Primary 11:45a , chris Edwards. open-angle glaucoma, left eye, moderate stage H40.51x3 Glaucoma secondary to oth eye disord, r eye, severe stage Z96.1 Presence of intraocular lens Office Visit 01/08/2019 9:45a Kamari Ulloa, H40.51x3 Glaucoma MD Amalia, chrsi Palacios secondary to oth eye disord, r eye, severe stage H40.1122 Primary open-angle glaucoma, left eye, moderate stage Office Visit 01/06/2019 1:30p Kamari Barrett H40.51x3 Glaucoma MD Amalia, chris Holland M.D. secondary to oth eye disord, r eye, severe stage H40.1122 Primary open-angle glaucoma, left eye, moderate stage Z96.1 Presence of intraocular lens Office Visit 01/04/2019 3:00p Kamari Levine H01.112 Allergic MD Amalia, chris Dejesus M.D. dermatitis of right lower eyelid H01.115 Allergic dermatitis of left lower eyelid H40.51x3 Glaucoma secondary to oth eye disord, r eye, severe stage H40.1122 Primary open-angle glaucoma, left eye, moderate stage Office Visit 10/12/2018 9:15a Kamari Soni H40.1113 Taurus Holland MD, chris Ulloa O.D. open-angle glaucoma, right eye, severe stage H20.011 Primary iridocyclitis, right eye H40.1122 Primary open-angle glaucoma, left eye, moderate stage Z96.1 Presence of intraocular lens Office Visit 09/01/2018 12:50p Kamari Barrett H20.011 Taurus Holland MD, Suzanne Lang iridocyclitis, right pc eye H40.1113 Primary open-angle glaucoma, right eye, severe stage H40.1122 Primary open-angle glaucoma, left eye, moderate stage Office Visit 08/05/2018 7:45a Kamari Barrett H20.011 Taurus Holland MD, chris Holland M.D. iridocyclitis, right eye H40.1113 Primary open-angle glaucoma, right eye, severe stage H40.1122 Primary open-angle glaucoma, left eye, moderate stage H26.491 Other secondary cataract, right eye Z96.1 Presence of intraocular lens Office Visit 05/10/2018 9:45a Kamari Barrett H40.1113 Taurus Holland MD, chris Holland M.D. open-angle glaucoma, right eye, severe stage H40.1122 Primary open-angle glaucoma, left eye, moderate stage H26.491 Other secondary cataract, right eye Z96.1 Presence of intraocular lens Office Visit 05/03/2018 8:00a Kamari Soni H20.011 Taurus Holland MD, chris Ulloa O.D. iridocyclitis, right eye H40.1133 Primary open-angle glaucoma, bilateral, severe stage Office Visit 04/30/2018 8:15a Kamari Soni H40.1133 Taurus Holland MD, chris Ulloa O.D. open-angle glaucoma, bilateral, severe stage H20.011 Primary iridocyclitis, right eye Office Visit 04/27/2018 10:30a Kamari Barrett H20.011 Taurus Holland MD, chris Holland M.D. iridocyclitis, right eye H40.1133 Primary open-angle glaucoma, bilateral, severe stage Z96.1 Presence of intraocular lens Office Visit 09/08/2017 7:45a Kamari Barrett H20.011 Taurus Holland MD, chris Holland M.D. iridocyclitis, right eye H40.1133 Primary open-angle glaucoma, bilateral, severe stage Office Visit 08/25/2017 3:30p Kamari Levine H20.011 Taurus Holland MD, Zablocki, M.D. iridocyclitis, right pc eye H40.1133 Primary open-angle glaucoma, bilateral, severe stage Office Visit 08/20/2017 11:00a Kamari Barrett H20.011 Taurus Holland MD, chris Holland M.D. iridocyclitis, right eye H40.1133 Primary open-angle glaucoma, bilateral, severe stage H26.491 Other secondary cataract, right eye Z96.1 Presence of intraocular lens H25.12 Age-related nuclear cataract, left eye Office Visit 08/19/2017 2:30p Kamari Levine H20.011 Taurus Holland MD, Zablocki, M.D. iridocyclitis, right pc eye H40.1133 Primary open-angle glaucoma, bilateral, severe stage H26.491 Other secondary cataract, right eye Z96.1 Presence of intraocular lens Office Visit 08/17/2017 1:00p Kamari Barrett H20.011 Taurus Holland MD, chris Holland M.D. iridocyclitis, right eye H40.1133 Primary open-angle glaucoma, bilateral, severe stage H26.491 Other secondary cataract, right eye Z96.1 Presence of intraocular lens H25.12 Age-related nuclear cataract, left eye Office Visit 08/15/2017 10:15a Kamari Soni H20.011 Taurus Holland MD, chris Ulloa O.D. iridocyclitis, right eye Office Visit 10/21/2016 8:30a Kamari Barrett H25.11 Age-related nuclear MD Amalia, chris Holland M.D. cataract, right eye H40.1132 Primary open-angle glaucoma, bilateral, moderate stage H25.12 Age-related nuclear cataract, left eye Office Visit 07/31/2016 7:45a Kamari Barrett H40.11x3 Taurus Holland MD, chris Holland M.D. open-angle glaucoma, severe stage H25.13 Age-related nuclear cataract, bilateral Office Visit 02/18/2016 9:45a Kamari Barrett H40.11x3 Taurus Holland MD, chris Holland M.D. open-angle glaucoma, severe stage Office Visit 10/23/2015 9:45a Kmaari Barrett H40.11x3 Taurus Holland MD, chris Holland M.D. open-angle glaucoma, severe stage Office Visit 10/01/2015 2:45p Kamari Barrett H40.11x3 Taurus Holland MD, chris Holland M.D. open-angle glaucoma, severe stage Office Visit 05/24/2015 12:30p Kamari Barrett 365.11 Taurus Holland MD, chris Holland M.D. Angle Glaucoma 365.73 Severe / Advanced / End Stage Glaucoma Office Visit 05/07/2015 8:45a Kamari Lomeli 365.73 Severe / Advanced , chris Holland M.D. / End Stage Glaucoma 365.11 Primary Open Angle Glaucoma Office Visit 01/13/2013 1:00p Kamari Lomeli 365.11 Primary Open , chris Holland M.D. Angle Glaucoma 365.73 Severe / Advanced / End Stage Glaucoma Office Visit 10/14/2011 8:45a Kamari Lomeli 365.11 Primary Open , chris Holland M.D. Angle Glaucoma 365.73 Severe / Advanced / End Stage Glaucoma Office Visit 06/12/2011 8:30a Kamari Lomeli 365.11 Primary Open chris WAGNER M.D. Angle Glaucoma Office Visit 05/28/2010 8:45a Kamari Lomeli 365.11 Primary Open chris WAGNER M.D. Angle Glaucoma Office Visit 03/04/2010 12:45p Nereyda Lomeli, 370.00 Corneal Ulcer , chris OLidia (Infectious) Office Visit 12/26/2009 9:30a Kamari Lomeli 365.11 Primary Open chris WAGNER M.D. Angle Glaucoma Office Visit 12/19/2009 9:00a Kamari Lomeli, 365.11 Primary Open chris WAGNER M.D. Angle Glaucoma Office Visit 12/19/2009 8:00a Kamari Lomeli, 365.11 Primary Open chris WAGNER M.D. Angle Glaucoma Plan of Treatment Future Appointment(s):03/22/2019 10:15 am - Kamari Holland M.D. at Kamari Holland [facility], 03/22/2019 9:30 am - [facility] at Kamari Holland [facility], 2018 - Kamari Holland M.D.H40.1113 Primary open-angle glaucoma, right eye, severe stageComments:Smoking can increase the risk of developing or worsening any eye related disease, as well as affect your overall health. If you are a smoker, we strongly recommend that you quit.If you are not a smoker, we strongly recommend that you do not start. Your Glaucoma is stable at this time in your right eye. Your eye pressure is within an acceptable range, and your testing does not show any further deterioration at this time. Please continue your treatment as directed and keep follow up appointments.Follow up:2 Month Follow Up [facility], [facility] [address] OU At your next visit, we are not planning to dilate your eyes. However, if you have any changes in your vision or new symptoms, there are certain situations that require us to dilate your eyes. If Dr. Holland requests any additional testing, that may requireextra time. If you have any questions before your next appointment, please call our office at .C57.7528 Primary open-angle glaucoma, left eye, moderate stageComments:Your glaucoma is stable at this time in your left eye.Your eye pressure is within an acceptable range, and your testing does not show any further deterioration at this time. Please continue your treatment as directed and keep follow up appointments.Z96.1 Presence of intraocular lens
--- OUTSIDE RECORDS SUMMARY | 2019-03-24 15:03 | XMS REPORT | Continuity of Care Document ---
:1970 External Reference #:[id number] Author Name Airam Campa Care Team Providers Name Role Phone Tish Momin MD Primary Care Physician Unavailable Payers Date Identification Numbers Payment Provider Subscriber Effective: 2017 Policy Number: [id number] [employer] Yandel Trivedi PayID: [id number] [address] [address] [place] [address] Advance Directives Description No Information Available Problems Active Problems Provider Date Partial seizure evolving to secondary Didi Horton M.D. 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 [employer] ETOH Use Denies alcohol use Tobacco Use Start: Unknown Patient has never smoked Smoking Status Reviewed: 02/23/19 Patient has never smoked Allergies, Adverse Reactions, Alerts Active Allergies Reaction Severity Comments Date Penicillin 10/06/2013 Clarithromycin Toxicity Moderate 08/12/2012 Motrin 10/06/2013 Iodinated Diagnostic Agents Shortness of breath Severe 08/12/2012 Theophylline 10/06/2013 Penicillins Shock/Unconsciousness, Severe 10/22/2007 Asthma/Shortness of Breath Lorabid 10/06/2013 Ceclor 10/06/2013 Ceftin 10/06/2013 Levaquin 10/06/2013 Bactrim 10/03/2014 Contrast Dye Respiratory issues 05/31/2015 Vysine Eye swelling 05/31/2015 Augmentin 02/17/2018 Lovenox 02/17/2018 Medications Active Medications SIG Qnty Indications Ordering Date Provider Tegretol take 2 tablets 225tabs Emanuel Marsh 04/01/2013 200mg Tablets by mouth every Tamara Schneider morning, 1 and 1/2 tablet by mouth at 200pm, 2 tablets at 6:00pm and 2 every night at bedtime brand name only Acetaminophen Take 1 tablet by 719.49 Liliane 03/10/2013 500mg mouth every 6 MD Tish Tablets hours as needed for pain Travatan Z 1`drop in both Unknown 0.004% eyes at bedtime Solution Levetiracetam take 5 tabs by 300tayuriy Marsh 500mg mouth in the in Tamara Schneider Tablets the morning, 5 tabs by mouth at bedtime. Timolol Maleate 1 drop both eyes EllstonMelia, 0.5% in the morning O.D. Solution History Medications Calcium 500+D3 2 po qd 180tabs Z79.899 Emanuel Marsh 02/17/2018 - Tamara Schneider 11/23/2018 [id number] Tablets Vitamin D3 1 by mouth Z00.01 Liliane 05/20/2016 - 2000Unit every day with MD Tish 11/23/2018 Capsules food from August till January every year Klonopin 1 by mouth 20tabs Didi Garcia 10/09/2015 - 0.5mg Tablets twice every day Tamara Horton 02/03/2017 as directed around menstral cycle Acetazolamide 1-2 by mouth 120tabs G40.009 Didi Garcia 05/31/2015 - 125mg twice a day x 6 Tamara Horton 11/23/2018 Tablets days as directed Azopt 1 drop twice Unknown - 1% Suspension daily 11/23/2018 Alphagan P instill one Unknown - 0.1% Solution drop both eyes 02/16/2018 twice a day Simbrinza 1 drop both Unknown - 1-0.2% eyes twice 02/22/2019 Suspension daily Rhopressa 1 drop in both Melia Ulloa, - 0.02% Solution eyes at bedtime O.D. 02/22/2019 Immunizations Description No Information Available Vital Signs Date Vital Result Comment 02/23/2019 9:50am Height 64 inches 5'4" Weight 192.00 lb Heart Rate 62 /min BP Systolic 106 mmHg BP Diastolic 72 mmHg BMI (Body Mass Index) 33.0 kg/m2 12/06/2018 10:53am Height 64 inches 5'4" Weight 188.00 lb Heart Rate 68 /min BP Systolic 92 mmHg BP Diastolic 62 mmHg BMI (Body Mass Index) 32.3 kg/m2 11/24/2018 9:04am Height 64 inches 5'4" Weight 187.50 lb Heart Rate 70 /min BP Systolic Sitting 98 mmHg BP Diastolic Sitting 78 mmHg Respiratory Rate 14 /min BMI (Body Mass Index) 32.2 kg/m2 09/30/2018 9:35am Height 64 inches 5'4" Weight 193.00 lb Heart Rate 73 /min BP Systolic 110 mmHg BP Diastolic 68 mmHg O2 % BldC Oximetry 96 % BMI (Body Mass Index) 33.1 kg/m2 08/20/2018 8:01am Height 64 inches 5'4" Weight 195.00 lb Heart Rate 62 /min BP Systolic 110 mmHg BP Diastolic 78 mmHg O2 % BldC Oximetry 97 % BMI (Body Mass Index) 33.5 kg/m2 Last Menstrual Period [id number] 02/17/2018 2:01pm Height 64 inches 5'4" Weight 190.00 lb Heart Rate 80 /min BP Systolic Sitting 106 mmHg BP Diastolic Sitting 76 mmHg Respiratory Rate 16 /min BMI (Body Mass Index) 32.6 kg/m2 02/17/2017 3:49pm Height 63 inches 5'3" Weight 181.00 lb Heart Rate 74 /min BP Systolic Sitting 102 mmHg BP Diastolic Sitting 68 mmHg Respiratory Rate 17 /min BMI (Body Mass Index) 32.1 kg/m2 12/11/2015 11:41am Height 63 inches 5'3" Weight 175.00 lb Heart Rate 60 /min BP Systolic Sitting 108 mmHg BP Diastolic Sitting 66 mmHg Respiratory Rate 14 /min BMI (Body Mass Index) 31.0 kg/m2 05/31/2015 11:18am Height 63 inches 5'3" Weight 174.00 lb Heart Rate 80 /min BP Systolic Sitting 90 mmHg BP Diastolic Sitting 68 mmHg Respiratory Rate 16 /min BMI (Body Mass Index) 30.8 kg/m2 10/03/2014 9:05am Height 63 inches 5'3" Weight 180.00 lb Heart Rate 60 /min BP Systolic Sitting 98 mmHg BP Diastolic Sitting 62 mmHg Respiratory Rate 16 /min BMI (Body Mass Index) 31.9 kg/m2 10/06/2013 8:48am Heart Rate 66 /min BP Systolic Sitting 106 mmHg BP Diastolic Sitting 68 mmHg Respiratory Rate 16 /min Results Test Date Facility Test Result H/L Range Note Laboratory test 02/20/20 [facility] Levetiracetam 13.0 1 finding [address] g/[place] [address] [phone] Laboratory test 12/18/19 [facility] Levetiracetam 11.5 Abnormal 2 finding [address] g/[place] [address] [phone] CBC Auto Diff 11/25/19 [facility] White Blood Count 5.4 N 3.5- 10.[address] 10^3/[place] [address] [phone] Red Blood Count 4.06 10^6/uL N 4.00-5.40 Hemoglobin 12.5 g/dL N 12.0-16.0 Hematocrit 37 % N 35-47 Mean Corpuscular Volume 90 fL N 80-97 Mean Corpuscular Hemoglobin 31 pg N 27-31 Mean Corpuscular HGB Conc 34 g/dL N 31-36 Red Cell Distribution Width 12 % N 10.5-15 Platelet Count 329 10^3/uL N 150-450 Mean Platelet Volume 5.8 fL Low 7.4-10.4 Abs Neutrophils 3.6 10^3/uL N 1.5-7.7 Abs Lymphocytes 1.3 10^3/uL N 1.0-4.8 Abs Monocytes 0.4 10^3/uL N 0-0.8 Abs Eosinophils 0.1 10^3/uL N 0-0.6 Abs Basophils 0 10^3/uL N 0-0.2 Abs Nucleated RBC 0 10^3/uL Granulocyte % 67.2 % Lymphocyte % 23.3 % Monocyte % 7.3 % Eosinophil % 1.8 % Basophil % 0.4 % Nucleated Red Blood Cells % 0 Comp Metabolic Panel 11/25/2018 [facility] Sodium 134 mmol/L Low 135-[address] [place] [address] [phone] Potassium 4.1 mmol/L N 3.5-5.0 Chloride 98 mmol/L Low 101-111 Co2 Carbon Dioxide 29 mmol/L N 22-32 Anion Gap 7 mmol/L N 2-11 Glucose 104 mg/dL High 70-100 Blood Urea Nitrogen 13 mg/dL N 6-24 Creatinine 0.58 mg/dL N 0.51-0.95 BUN/Creatinine Ratio 22.4 High 8-20 Calcium 9.2 mg/dL N 8.6-10.3 Total Protein 6.7 g/dL N 6.4-8.9 Albumin 3.9 g/dL N 3.2-5.2 Globulin 2.8 g/dL N 2-4 Albumin/Globulin Ratio 1.4 N 1-3 Total Bilirubin 0.40 mg/dL N 0.2-1.0 Alkaline Phosphatase 120 U/L High 34-104 Alt 19 U/L N 7-52 Ast 15 U/L N 13-39 Egfr Non- 110.5 >60 Egfr 133.7 >60 3 Laboratory test 11/25/2018 [facility] Carbamazepine 12.1 High 4.0-12.0 [address] g/[place] [address] [phone] Levetiracetam 12.7 g/mL 5 Laboratory test 09/30/2018 [facility] Surgical SEE RESULT 6 , [address] [place] [address] [phone] Laboratory test 08/20/2018 [facility] Cytology SEE RESULT [address] [place] [address] [phone] Laboratory test 03/11/2018 [facility] Carbamazepine 13.7 High 4.0- [address] g/mL 12.0 [place] [address] [phone] CBC Auto Diff 03/11/2018 [facility] White Blood Count 4.6 N 3.5- [address] 10^3/uL 10.8 [place] [address] [phone] Red Blood Count 4.00 10^6/uL N 4.0-5.4 Hemoglobin 12.6 g/dL N 12.0-16.0 Hematocrit 36 % N 35-47 Mean Corpuscular Volume 89 fL N 80-97 Mean Corpuscular Hemoglobin 31 pg N 27-31 Mean Corpuscular HGB Conc 35 g/dL N 31-36 Red Cell Distribution Width 12 % N 10.5-15 Platelet Count 335 10^3/uL N 150-450 Mean Platelet Volume 6.1 um3 Low 7.4-10.4 Abs Neutrophils 2.8 10^3/uL N 1.5-7.7 Abs Lymphocytes 1.3 10^3/uL N 1.0-4.8 Abs Monocytes 0.3 10^3/uL N 0-0.8 Abs Eosinophils 0.1 10^3/uL N 0-0.6 Abs Basophils 0 10^3/uL N 0-0.2 Abs Nucleated RBC 0 10^3/uL Granulocyte % 60.6 % N 38-83 Lymphocyte % 29.4 % N 25-47 Monocyte % 6.5 % N 0-7 Eosinophil % 3.1 % N 0-6 Basophil % 0.4 % N 0-2 Nucleated Red Blood Cells % 0.1 Comp Metabolic Panel 03/11/2018 [facility] Sodium 130 mmol/L Low 139-145 [address] [place] [address] [phone] Potassium 4.1 mmol/L N 3.5-5.0 Chloride 96 mmol/L Low 101-111 Co2 Carbon Dioxide 26 mmol/L N 22-32 Anion Gap 8 mmol/L N 2-11 Glucose 94 mg/dL N 70-100 Blood Urea Nitrogen 9 mg/dL N 6-24 Creatinine 0.55 mg/dL N 0.51-0.95 BUN/Creatinine Ratio 16.4 N 8-20 Calcium 8.9 mg/dL N 8.6-10.3 Total Protein 6.7 g/dL N 6.4-8.9 Albumin 4.1 g/dL N 3.2-5.2 Globulin 2.6 g/dL N 2-4 Albumin/Globulin Ratio 1.6 N 1-3 Total Bilirubin 0.40 mg/dL N 0.2-1.0 Alkaline Phosphatase 107 U/L High 34-104 Alt 12 U/L N 7-52 Ast 13 U/L N 13-39 Egfr Non- 117.5 >60 Egfr 151.1 >60 10 Laboratory test 03/11/2018 [facility] Levetiracetam 14.3 g/mL [address] [place] [address] [phone] CBC Auto Diff 03/14/2017 [facility] White Blood Count 6.3 10^3/ uL N 3.5-[address] 0.8 [place] [address] [phone] Red Blood Count 4.19 10^6/uL N 4.0-5.4 Hemoglobin 13.0 g/dL N 12.0-16.0 Hematocrit 38 % N 35-47 Mean Corpuscular Volume 90 fL N 80-97 Mean Corpuscular Hemoglobin 31 pg N 27-31 Mean Corpuscular HGB Conc 34 g/dL N 31-36 Red Cell Distribution Width 13 % N 10.5-15 Platelet Count 306 10^3/uL N 150-450 Mean Platelet Volume 6 um3 Low 7.4-10.4 Abs Neutrophils 4.3 10^3/uL N 1.5-7.7 Abs Lymphocytes 1.3 10^3/uL N 1.0-4.8 Abs Monocytes 0.4 10^3/uL N 0-0.8 Abs Eosinophils 0.2 10^3/uL N 0-0.6 Abs Basophils 0 10^3/uL N 0-0.2 Abs Nucleated RBC 0 10^3/uL N Granulocyte % 68.1 % N 38-83 Lymphocyte % 20.7 % Low 25-47 Monocyte % 7.0 % N 1-9 Eosinophil % 3.7 % N 0-6 Basophil % 0.5 % N 0-2 Nucleated Red Blood Cells % 0 N Comp Metabolic Panel 03/14/2017 [facility] Sodium 131 mmol/L Low 133-[address] [place] [address] [phone] Potassium 4.1 mmol/L N 3.5-5.0 Chloride 96 mmol/L Low 101-111 Co2 Carbon Dioxide 28 mmol/L N 22-32 Anion Gap 7 mmol/L N 2-11 Glucose 101 mg/dL High 70-100 Blood Urea Nitrogen 8 mg/dL N 6-24 Creatinine 0.53 mg/dL N 0.51-0.95 BUN/Creatinine Ratio 15.1 N 8-20 Calcium 8.7 mg/dL N 8.6-10.3 Total Protein 6.7 g/dL N 6.4-8.9 Albumin 3.8 g/dL N 3.2-5.2 Globulin 2.9 g/dL N 2-4 Albumin/Globulin Ratio 1.3 N 1-3 Total Bilirubin 0.30 mg/dL N 0.2-1.0 Alkaline Phosphatase 93 U/L N 34-104 Alt 13 U/L N 7-52 Ast 14 U/L N 13-39 Egfr Non- 123.1 N >60 Egfr 158.3 N >60 12 CBC Auto Diff 07/17/2015 [facility] White Blood 6.6 10^3/uL N 4.8-10.[address] [place] [address] [phone] Red Blood Count 3.99 10^6/uL Low 4.0-5.4 Hemoglobin 12.8 g/dL N 12.0-16.0 Hematocrit 37 % N 35-47 Mean Corpuscular Volume 93 fL N 80-97 Mean Corpuscular Hemoglobin 32 pg High 27-31 Mean Corpuscular HGB Conc 35 g/dL N 31-36 Red Cell Distribution Width 12 % N 10.5-15 Platelet Count 333 10^3/uL N 150-450 Mean Platelet Volume 7 um3 Low 7.4-10.4 Abs Neutrophils 4.5 10^3/uL N 1.5-7.7 Abs Lymphocytes 1.5 10^3/uL N 1.0-4.8 Abs Monocytes 0.4 10^3/uL N 0-0.8 Abs Eosinophils 0.1 10^3/uL N 0-0.6 Abs Basophils 0 10^3/uL N 0-0.2 Abs Nucleated RBC 0 10^3/uL N Granulocyte % 68.7 % N 38-83 Lymphocyte % 23.3 % Low 25-47 Monocyte % 5.7 % N 1-9 Eosinophil % 1.7 % N 0-6 Basophil % 0.6 % N 0-2 Nucleated Red Blood Cells % 0 N Comp Metabolic Panel 07/17/2015 [facility] Sodium 128 mmol/L Low 133-[address] [place] [address] [phone] Potassium 3.7 mmol/L N 3.5-5.0 Chloride 92 mmol/L Low 101-111 Co2 Carbon Dioxide 30 mmol/L N 22-32 Anion Gap 6 mmol/L N 2-11 Glucose 84 mg/dL N 70-100 Blood Urea Nitrogen 6 mg/dL N 6-24 Creatinine 0.59 mg/dL N 0.51-0.95 BUN/Creatinine Ratio 10.2 N 8-20 Calcium 8.8 mg/dL N 8.6-10.3 Total Protein 6.7 g/dL N 6.4-8.9 Albumin 4.3 g/dL N 3.2-5.2 Globulin 2.4 g/dL N 2-4 Albumin/Globulin Ratio 1.8 N 1-3 Total Bilirubin 0.40 mg/dL N 0.2-1.0 Alkaline Phosphatase 82 U/L N 34-104 Alt 13 U/L N 7-52 Ast 15 U/L N 13-39 Egfr Non- 109.7 N >60 Egfr 141.1 N >60 13 Laboratory test 07/17/2015 [facility] Carbamazepine 11.7 N 4.0 -12.[address] (Tegretol) g/[place] [address] [phone] Levetiracetam (Keppra) 14.1 g/mL N 14 Comp Metabolic Panel 11/19/2013 [facility] Sodium 133 mmol/L 133-[address] [place] [address] [phone] Potassium 3.8 mmol/L 3.5-5.0 Chloride 100 mmol/L Low 101-111 Co2 Carbon Dioxide 28.0 mmol/L 22-32 Anion Gap 5.0 mmol/L 2-11 Glucose 71 mg/dL 70-100 Blood Urea Nitrogen 6 mg/dL 6-24 Creatinine 0.70 mg/dL 0.50-1.40 BUN/Creatinine Ratio 8.6 8-20 Calcium 8.8 mg/dL 8.1-9.9 Total Protein 7.1 g/dL 6.2-8.1 Albumin 3.8 g/dL 3.6-5.4 Globulin 3.3 g/dL 2-4 Albumin/Globulin Ratio 1.2 1-3 Total Bilirubin 0.6 mg/dL 0.4-1.5 Alkaline Phosphatase 77 U/L 30-110 Alt 14 U/L 14-54 Ast 17 U/L 12-42 Egfr Non- 90.9 >60 Egfr 116.9 >60 15 CBC Auto Diff 10/06/2013 [facility] White Blood 5.8 10^3/uL 4.8-10.[address] [place] [address] [phone] Red Blood Count 3.83 10^6/uL Low 4.0-5.4 Hemoglobin 12.3 g/dL 12.0-16.0 Hematocrit 35 % 35-47 Mean Corpuscular Volume 90 fL 80-97 Mean Corpuscular Hemoglobin 32 pg High 27-31 Mean Corpuscular HGB Conc 36 g/dL 31-36 Red Cell Distribution Width 12 % 10.5-15 Platelet Count 305 10^3/uL 150-450 Mean Platelet Volume 7 um3 Low 7.4-10.4 Abs Neutrophils 4.2 10^3/uL 1.5-7.7 Abs Lymphocytes 1.1 10^3/uL 1.0-4.8 Abs Monocytes 0.3 10^3/uL 0-0.8 Abs Eosinophils 0.1 10^3/uL 0-0.6 Abs Basophils 0 10^3/uL 0-0.2 Abs Nucleated RBC 0 10^3/uL Granulocyte % 73.0 % 38-83 Lymphocyte % 18.4 % Low 25-47 Monocyte % 6.0 % 1-9 Eosinophil % 2.0 % 0-6 Basophil % 0.6 % 0-2 Nucleated Red Blood Cells % 0.1 Comp Metabolic Panel 10/06/2013 [facility] Sodium 130 mmol/L Low 133-[address] [place] [address] [phone] Potassium 3.7 mmol/L 3.5-5.0 Chloride 97 mmol/L Low 101-111 Co2 Carbon Dioxide 26.0 mmol/L 22-32 Anion Gap 7.0 mmol/L 2-11 Glucose 97 mg/dL 70-100 Blood Urea Nitrogen 7 mg/dL 6-24 Creatinine 0.50 mg/dL 0.50-1.40 BUN/Creatinine Ratio 14.0 8-20 Calcium 8.6 mg/dL 8.1-9.9 Total Protein 6.1 g/dL Low 6.2-8.1 Albumin 3.8 g/dL 3.6-5.4 Globulin 2.3 g/dL 2-4 Albumin/Globulin Ratio 1.7 1-3 Total Bilirubin 0.6 mg/dL 0.4-1.5 Alkaline Phosphatase 78 U/L 30-110 Alt 15 U/L 14-54 Ast 14 U/L 12-42 Egfr Non- 134.0 >60 Egfr 172.4 >60 16 Laboratory 10/06/2013 [facility] Carbamazepine 9.8 4.0-12.0 17 test finding [address] g/[place] [address] [phone] Laboratory 04/13/2013 [facility] C Reactive < 0.5 Less than test finding [address] Protein mg/dL 0.5 [place] [address] [phone] Erythrocyte Sed Rate 11 mm/Hr 0-14 Lyme Disease Serology Negative Negative 18 Basic Metabolic 04/13/2013 [facility] Sodium 132 mmol/L Low 133-[address] [place] [address] [phone] Potassium 3.9 mmol/L 3.5-5.0 Chloride 98 mmol/L Low 101-111 Co2 Carbon Dioxide 28.0 mmol/L 22-32 Anion Gap 6.0 mmol/L 2-11 Glucose 92 mg/dL 70-100 Blood Urea Nitrogen 7 mg/dL 6-24 Creatinine 0.60 mg/dL 0.50-1.40 BUN/Creatinine Ratio 11.7 8-20 Calcium 8.8 mg/dL 8.1-9.9 Egfr Non- 108.6 >60 Egfr 139.7 >60 19 Laboratory test 03/10/2013 [facility] Erythrocyte Sed 11 mm/Hr 0-[address] [place] [address] [phone] CBC No Diff 03/10/2013 [facility] White Blood 5.4 4.8-10.[address] Count 10^3/[place] [address] [phone] Red Blood Count 4.08 10^6/uL 4.0-5.4 Hemoglobin 12.9 g/dL 12.0-16.0 Hematocrit 37 % 35-47 Mean Corpuscular Volume 90 fL 80-97 Mean Corpuscular Hemoglobin 32 pg High 27-31 Mean Corpuscular HGB Conc 35 g/dL 31-36 Red Cell Distribution Width 12 % 10.5-15 Platelet Count 284 10^3/uL 150-450 Mean Platelet Volume 6 um3 Low 7.4-10.4 Laboratory test 03/10/2013 [facility] Creatine Kinase 86 U/L 0-[address] [place] [address] [phone] C Reactive Protein 0.5 mg/dL Less than 0.5 Basic Metabolic 03/10/2013 [facility] Sodium 131 mmol/L Low 133-[address] [place] [address] [phone] Potassium 3.4 mmol/L Low 3.5-5.0 Chloride 97 mmol/L Low 101-111 Co2 Carbon Dioxide 28.0 mmol/L 22-32 Anion Gap 6.0 mmol/L 2-11 Glucose 110 mg/dL High 70-100 Blood Urea Nitrogen 9 mg/dL 6-24 Creatinine 0.60 mg/dL 0.50-1.40 BUN/Creatinine Ratio 15.0 8-20 Calcium 9.0 mg/dL 8.1-9.9 Egfr Non- 108.6 >60 Egfr 139.7 >60 20 Urine Drug 08/06/2012 [facility] Amphetamine Ur None Detected None Detect SCR ED & [address] [address] [phone] Barbiturates Urine Screen None Detected None Detect Benzodiazepine Urine Screen None Detected None Detect Urine Cannabinoids Screen None Detected None Detect Urine Cocaine Screen None Detected None Detect Urine Opiates Screen None Detected None Detect Urine Phencyclidine Screen None Detected None Detect 21 CBC Auto Diff 08/06/2012 [facility] White Blood 5.9 10^3/uL 4.8-10.[address] [place] [address] [phone] Red Blood Count 3.46 10^6/uL Low 4.0-5.4 Hemoglobin 11.0 g/dL Low 12.0-16.0 Hematocrit 32 % Low 35-47 Mean Corpuscular Volume 91 fL 80-97 Mean Corpuscular Hemoglobin 32 pg High 27-31 Mean Corpuscular HGB Conc 35 g/dL 31-36 Red Cell Distribution Width 12 % 10.5-15 Platelet Count 262 10^3/uL 150-450 Mean Platelet Volume 6 um3 Low 7.4-10.4 Abs Neutrophils 3.9 10^3/uL 1.5-7.7 Abs Lymphocytes 1.4 10^3/uL 1.0-4.8 Abs Monocytes 0.5 10^3/uL 0-0.8 Abs Eosinophils 0.1 10^3/uL 0-0.6 Abs Basophils 0 10^3/uL 0-0.2 Abs Nucleated RBC 0 10^3/uL Granulocyte % 66.0 % 38-83 Lymphocyte % 23.3 % Low 25-47 Monocyte % 8.6 % 1-9 Eosinophil % 1.9 % 0-6 Basophil % 0.2 % 0-2 Nucleated Red Blood Cells % 0 Comp Metabolic Panel 08/06/2012 [facility] Sodium 135 mmol/L 133-[address] [place] [address] [phone] Potassium 2.7 mmol/L Low 3.5-5.0 Chloride 105 mmol/L 101-111 Co2 Carbon Dioxide 24.0 mmol/L 22-32 Anion Gap 6.0 mmol/L 2-11 Glucose 119 mg/dL High 70-100 Blood Urea Nitrogen 9 mg/dL 6-24 Creatinine 0.40 mg/dL Low 0.50-1.40 BUN/Creatinine Ratio 22.5 High 8-20 Calcium 7.9 mg/dL Low 8.1-9.9 Total Protein 5.8 GM/DL Low 6.2-8.1 Albumin 3.0 GM/DL Low 3.6-5.4 Globulin 2.8 GM/DL 2-4 Albumin/Globulin Ratio 1.1 1-3 Total Bilirubin 0.2 mg/dL 0.1-1.0 22 Alkaline Phosphatase 70 U/L 30-110 Alt 14 U/L 14-54 Ast 18 U/L 12-42 Egfr Non- 174.2 >60 Egfr 224.0 >60 23 Laboratory test 08/06/2012 [facility] Troponin I 0 NG/ML [address] [place] [address] [phone] Laboratory test 08/06/2012 [facility] Levetiracetam 12.0 [address] g/[place] [address] [phone] Carbamazepine 08/06/2012 [facility] Free 4.6 Abnormal 26 Free & Total [address] [facility] Carbamazepine g/[place] [address] [phone] Total Carbamazepine 18.2 g/mL Abnormal 27 Laboratory test 08/06/2012 [facility] Carbamazepine 26.2 High 4.0-12.0 28 finding [address] g/[place] [address] [phone] Urinalysis 08/06/2012 [facility] Urine Color Yellow [address] [place] [address] [phone] Urine Appearance Clear Urine Specific [place] 1.008 Low 1.010-1.030 Urine Esterase Negative Negative Urine Nitrate Negative Negative Urine Urobilinogen Negative Negative Urine Protein Negative Negative Urine pH 5.5 5-9 Urine Blood Negative Negative Urine Ketones Negative Negative Urine Bilirubin Negative Negative Urine Glucose Negative Negative Laboratory test 08/06/2012 [facility] Potassium 3.9 mmol/L 3.5-5.0 finding [address] [place] [address] [phone] 1 REFERENCE VALUE 12.0 - 46.0 ADDITIONAL INFORMATION This test was developed and its performance characteristics determined by [facility] in a manner consistent with CLIA requirements. This test has not been cleared or approved by the U.S. Food and Drug Administration. Test Performed by: [facility] - [facility] [address] [place] [address] 2 REFERENCE VALUE 12.0 - 46.0 ADDITIONAL INFORMATION This test was developed and its performance characteristics determined by [facility] in a manner consistent with CLIA requirements. This test has not been cleared or approved by the U.S. Food and Drug Administration. Test Performed by: [facility] [employer] - [address] [address] 3 Because ethnic data is not always readily available, this report includes an eGFR for both -Americans and non- Americans. The National Kidney Disease Education Program (NKDEP) does not endorse the use of the MDRD equation for patients that are not between the ages of 18 and 70, are , have extremes of body size, muscle mass, or nutritional status, or are non- or non-. According to the National Kidney Foundation, irrespective of diagnosis, the stage of the disease is based on the level of kidney function: Stage Description GFR(mL/min/1.73 m(2)) 1 Kidney damage with normal or decreased GFR 90 2 Kidney damage with mild decrease in GFR 60-89 3 Moderate decrease in GFR 30-59 4 Severe decrease in GFR 15-29 5 Kidney failure <15 (or dialysis) 4 Copy Result to: TISH MOMIN ([id number]) 5 REFERENCE VALUE 12.0 - 46.0 ADDITIONAL INFORMATION This test was developed and its performance characteristics determined by [facility] in a manner consistent with CLIA requirements. This test has not been cleared or approved by the U.S. Food and Drug Administration. Test Performed by: [facility] [employer] [facility] - [address] [address] 6 [id number] SEE RESULT BELOW Name: RUSS TRIVEDI : [address]: Zan Castellano MD Acct: [id number] Unit: [id number] AGE: 48 Location: [facility] Re09/30/18 SEX: F Status: REG REF SPEC: [id number] MONICA: 09/30/18-[address]: Zan Castellano MD REQ: [id number] RECD: 09/30/18 STATUS: SOUT _ ORDERED: LEVEL 4 COMMENTS: [id number] FINAL DIAGNOSIS Uterus, endometrium, biopsy: --Scant benign inactive endometrium. -- No evidence of hyperplasia or neoplasia identified. Comment: Clinical correlation and appropriate follow-up is recommended. PRE-OPERATIVE DIAGNOSIS Post-menopausal bleeding GROSS DESCRIPTION The specimen is received in formalin with no source identified and a requisition labeled, Endometrial Biopsy, and consists of a 1.9 x 1.3 by up to 0.4 cm aggregate of lei to acuna white mucus admixed with scant red-brown blood clot. The specimen is filtered and submitted entirely in one cassette. Signed by and Reported on: Bandar Roberts MD 01/17 1208 END OF REPORT DEPARTMENT OF PATHOLOGY, [address] [place] [address] Bandar Roberts M.D. Director [facility] # [id number] 8 SEE RESULT BELOW Name: RUSS TRIVEDI : [address]: Zan Castellano MD Acct: [id number] Unit: [id number] AGE: 48 Location: [facility] Re08/20/18 SEX: F Status: REG REF SPEC: [id number] MONICA: 08/20/[address] [facility] DR: Zan Castellano MD REQ: [id number] RECD: 08/20/18 STATUS: SOUT _ ORDERED: TP IMAGE ANALYS, SENIOR WEB DESIGNER PHYS INTERP, HPV/Thin Prep COMMENTS: [id number] EPITHELIAL CELL ABNORMALITIES Atypical squamous cells of undetermined significance Date Time Test Result Flag (u) Normal Range 08/20/18 0854 @ HPV RNA Negative Negative @ @ The high-risk HPV types detected by the assay include: 16, @ 18, 31, 33, 35, 39, 45, 51, 52, 56, 58, 59, 66, and 68. A. Ectocervical/Endocervical Specimen Adequacy: Satisfactory of evaluation Transformation zone component identified Patient Information: HPV: High risk HPV RNA testing regardless of pap results. Actual Specimen Date: 08/20/18 Last Menstrual Date: 06/07/18 ?: N Post Menopausal?: Y Hysterectomy?: N Signed by and Reported on: Marie Mitchell MD 08/24/18 1086 This Pap test was evaluated with the assistance of the ThinPrep Test Imaging System. Due to cytologic findings at the prop drawer microscope, comprehensive manual rescreening by a [employer] may be required. The Pap Smear is a screening test designed to aid in the detection of premalignant and malignant conditions of the uterine cervix. It is not a diagnostic procedure and should not be used as the sole means of detecting cervical cancer. Both false- positive and false- negative reports do occur. Depending on your risk status, a Pap smear should be obtained and evaluated every 1-3 years. END OF REPORT DEPARTMENT OF PATHOLOGY, [address] [place] [address] Bandar Roberts M.D. Director [facility] # [id number] 9 Copy Result to: LILIANE MOORE ([id number]) 10 Because ethnic data is not always readily available, this report includes an eGFR for both -Americans and non- Americans. The National Kidney Disease Education Program (NKDEP) does not endorse the use of the MDRD equation for patients that are not between the ages of 18 and 70, are , have extremes of body size, muscle mass, or nutritional status, or are non- or non-. According to the National Kidney Foundation, irrespective of diagnosis, the stage of the disease is based on the level of kidney function: Stage Description GFR(mL/min/1.73 m(2)) 1 Kidney damage with normal or decreased GFR 90 2 Kidney damage with mild decrease in GFR 60-89 3 Moderate decrease in GFR 30-59 4 Severe decrease in GFR 15-29 5 Kidney failure <15 (or dialysis) 11 REFERENCE VALUE 12.0 - 46.0 ADDITIONAL INFORMATION This test was developed and its performance characteristics determined by [facility] in a manner consistent with CLIA requirements. This test has not been cleared or approved by the U.S. Food and Drug Administration. Test Performed by: [facility] [address] [place] [address] 12 Because ethnic data is not always readily available, this report includes an eGFR for both -Americans and non- Americans. The National Kidney Disease Education Program (NKDEP) does not endorse the use of the MDRD equation for patients that are not between the ages of 18 and 70, are , have extremes of body size, muscle mass, or nutritional status, or are non- or non-. According to the National Kidney Foundation, irrespective of diagnosis, the stage of the disease is based on the level of kidney function: Stage Description GFR(mL/min/1.73 m(2)) 1 Kidney damage with normal or decreased GFR 90 2 Kidney damage with mild decrease in GFR 60-89 3 Moderate decrease in GFR 30-59 4 Severe decrease in GFR 15-29 5 Kidney failure <15 (or dialysis) 13 Because ethnic data is not always readily available, this report includes an eGFR for both -Americans and non- Americans. The National Kidney Disease Education Program (NKDEP) does not endorse the use of the MDRD equation for patients that are not between the ages of 18 and 70, are , have extremes of body size, muscle mass, or nutritional status, or are non- or non-. According to the National Kidney Foundation, irrespective of diagnosis, the stage of the disease is based on the level of kidney function: Stage Description GFR(mL/min/1.73 m(2)) 1 Kidney damage with normal or decreased GFR 90 2 Kidney damage with mild decrease in GFR 60-89 3 Moderate decrease in GFR 30-59 4 Severe decrease in GFR 15-29 5 Kidney failure <15 (or dialysis) 14 REFERENCE VALUE 12.0 - 46.0 Test Performed by: [facility] [address] [address] Physics Faculty Member: Ezequiel Kincaid II, M.D., Ph.D. 15 Because ethnic data is not always readily available, this report includes an eGFR for both -Americans and non- Americans. The National Kidney Disease Education Program (NKDEP) does not endorse the use of the MDRD equation for patients that are not between the ages of 18 and 70, are , have extremes of body size, muscle mass, or nutritional status, or are non- or non-. According to the National Kidney Foundation, irrespective of diagnosis, the stage of the disease is based on the level of kidney function: Stage Description GFR(mL/min/1.73 m(2)) 1 Kidney damage with normal or decreased GFR 90 2 Kidney damage with mild decrease in GFR 60-89 3 Moderate decrease in GFR 30-59 4 Severe decrease in GFR 15-29 5 Kidney failure <15 (or dialysis) 16 Because ethnic data is not always readily available, this report includes an eGFR for both -Americans and non- Americans. The National Kidney Disease Education Program (NKDEP) does not endorse the use of the MDRD equation for patients that are not between the ages of 18 and 70, are , have extremes of body size, muscle mass, or nutritional status, or are non- or non-. According to the National Kidney Foundation, irrespective of diagnosis, the stage of the disease is based on the level of kidney function: Stage Description GFR(mL/min/1.73 m(2)) 1 Kidney damage with normal or decreased GFR 90 2 Kidney damage with mild decrease in GFR 60-89 3 Moderate decrease in GFR 30-59 4 Severe decrease in GFR 15-29 5 Kidney failure <15 (or dialysis) 17 TROUGH FOR TEGRETOL 18 Serologic response to B. burgdorferi infection is not detected, but cannot rule out early infection during which low or undetectable antibody levels to B. burgdorferi may be present. If clinically indicated, a new serum specimen should be submitted in 7-14 days. Test Performed by: [place] [address] Physics Faculty Member: Jamie Holloway III, M.D. 19 Because ethnic data is not always readily available, this report includes an eGFR for both -Americans and non- Americans. The National Kidney Disease Education Program (NKDEP) does not endorse the use of the MDRD equation for patients that are not between the ages of 18 and 70, are , have extremes of body size, muscle mass, or nutritional status, or are non- or non-. According to the National Kidney Foundation, irrespective of diagnosis, the stage of the disease is based on the level of kidney function: Stage Description GFR(mL/min/1.73 m(2)) 1 Kidney damage with normal or decreased GFR 90 2 Kidney damage with mild decrease in GFR 60-89 3 Moderate decrease in GFR 30-59 4 Severe decrease in GFR 15-29 5 Kidney failure <15 (or dialysis) 20 Because ethnic data is not always readily available, this report includes an eGFR for both -Americans and non- Americans. The National Kidney Disease Education Program (NKDEP) does not endorse the use of the MDRD equation for patients that are not between the ages of 18 and 70, are , have extremes of body size, muscle mass, or nutritional status, or are non- or non-. According to the National Kidney Foundation, irrespective of diagnosis, the stage of the disease is based on the level of kidney function: Stage Description GFR(mL/min/1.73 m(2)) 1 Kidney damage with normal or decreased GFR 90 2 Kidney damage with mild decrease in GFR 60-89 3 Moderate decrease in GFR 30-59 4 Severe decrease in GFR 15-29 5 Kidney failure <15 (or dialysis) 21 The urine specimen was tested at the listed cutoffs: Drug class test level (ng/ml) Amphetamines 300 Barbituates 200 Benzodiazepine metabolites 200 Cocaine metabolites 300 Cannabinoids 25 Opiates 200 Pcp 25 This is a screening procedure. Positive results are not confirmed. Specimen was received without chain of custody. Results should be used for medical purposes only. 22 A metabolite of Naproxen, O-desmethylnaproxen, has been shown to interfere with the Jendrassik-Argyle method for measuring total bilirubin. Samples from patients who have taken Naproxen have shown spurious elevation in total bilirubin levels. 23 Because ethnic data is not always readily available, this report includes an eGFR for both -Americans and non- Americans. The National Kidney Disease Education Program (NKDEP) does not endorse the use of the MDRD equation for patients that are not between the ages of 18 and 70, are , have extremes of body size, muscle mass, or nutritional status, or are non- or non-. According to the National Kidney Foundation, irrespective of diagnosis, the stage of the disease is based on the level of kidney function: Stage Description GFR(mL/min/1.73 m(2)) 1 Kidney damage with normal or decreased GFR 90 2 Kidney damage with mild decrease in GFR 60-89 3 Moderate decrease in GFR 30-59 4 Severe decrease in GFR 15-29 5 Kidney failure <15 (or dialysis) 24 Reference Range and Interpretation: TnI (ng/ml) Interpretation Less Than 0.06 ng/mL Not supportive of diagnosis of [place] 0.06 - 0.50 ng/ml Indeterminate: suggest serial studies if clinically indicated. Greater than 0.5 ng/mL Consistent with diagnosis of [place] 25 -- REFERENCE VALUE -- 12.0 - 46.0 Test Performed by: [address] [address] Physics Faculty Member: Jamie Holloway III, M.D. R 26 -- REFERENCE VALUE -- 0.5 - 3.6 (Toxic > or=4.0) R 27 -- REFERENCE VALUE -- 2.0 - 10.0 (Toxic > or=12.0) Test Performed by: [place] [address] Physics Faculty Member: Jamie Holloway III, M.D. R 28 Verbal to [employer] by [id number] at 0146 on 08/06/12. Results read back accurately. The detection limit for CARBAMAZEPINE is 2.0 mcg/ml . Values less than 2.0 mcg/ml cannot be accurately measured. Procedures Date Code Description Status 12/02/2018 74236 EEG Recording Awake & Asleep Completed 09/30/2018 72162 Endometrial Sampling W Or W/O Endocervical BX W Or W/O Completed Cerv Dilat 03/05/2018 106129009 Bone Mineral Density Test Completed 08/17/2012 72362 Polysomnography Sleep Staging 4+ Parameters Completed 08/06/2012 52793 EKG, Interpretation Only Completed Encounters Type Date Location Provider Dx Diagnosis Office Visit 12/06/2018 [place] [facility] Mejia Cummings NP G40.109 Local- rel symptc 11:00a [facility] epi w simp prt seiz,not ntrct, w/o stat epi Office Visit 11/24/2018 [place] Jeffery Cummings NP G40.109 Local- rel symptc 9:00a [facility] epi w simp prt seiz,not ntrct, w/o stat epi M54.2 Cervicalgia Office Visit 08/20/2018 [facility] Dvorah N95.0 Postmenopausal 8:00a [facility] MD Nona bleeding Office Visit 02/17/2018 [place] Emanuel Marsh G40.109 Local-rel symptc epi 2:00p [facility] Tamara Schneider w simp prt seiz,not [facility] ntrct, w/o stat epi Z79.899 Other jail (current) drug therapy Office Visit 02/17/2017 3:45p [place] Jeffery Garcia G40.109 Local-rel [facility] M.D. symptc epi w simp prt seiz,not ntrct, w/o stat epi Office Visit 12/11/2015 11:45a [place] Jeffery Garcia G40.109 Local-rel [facility] Horton M.D. 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 327.51 Periodic Limb Movement Disorder Office Visit 10/03/2014 [place] 345.50 Local-Related 8:45a Neurologic Tamara Horton Epilepsy W/Simple [facility] Part Seizure W/O Intractable 780.4 Dizziness & Giddiness Office Visit 10/06/2013 [place] Didi Garcia 345.50 Local-Related 8:45a Neurologic Tamara Horton Epilepsy W/Simple [facility] Part Seizure W/O Intractable Office Visit 10/06/2012 Karrie Mallory 327.51 Periodic Limb 11:24a Disorder Center Tamara Yoon Movement Disorder 786.09 Dyspnea & Respiratory Abnormalities Other Office Visit 08/06/2012 [facility] Naomy 966.3 Poisoning By 1:28p Assocchris M.D. Anticonvulsants Hospitalists Other & Unspec 276.51 Dehydration 781.3 Coordination Lack Of 473.9 Sinusitis Chronic Unspec Office Visit 07/28/2012 Karrie Mallory 786.09 Dyspnea & 3:09p Disorder Center Tamara Yoon Respiratory Abnormalities Other Office Visit 06/09/2012 [place] Didi IleneFaith 780.39 Convulsions Other 10:30a Neurologic Tamara Horton [facility] 724.2 Lumbago Plan of Treatment Future Appointment(s):05/10/2019 11:15 am - Emanuel Schneider M.D. at [place] [facility]02/23/2019 - Emanuel Schneider M.D.G40.109 Localization-related (focal) (partial) symptomatic epilepsyFollow up:2 - 3 MONTHSRecommendations:Increase Keppra to 5 tablets in the morning and 6 at night. I will change her prescription to brand-name only. We will probably need insurance approval first.
--- OUTSIDE RECORDS SUMMARY | 2019-03-24 15:03 | XMS REPORT | Continuity of Care Document ---
:1970 External Reference #:[id number] Author Name Kamari Holland M.D. Address [address] [place] [address] Care Team Providers Name Role Phone Tish Burt M.D. Primary Care Physician Unavailable Payers Date Identification Numbers Payment Provider Subscriber Policy Number: [id number] [facility] Yandel Trivedi PayID: [id number] [facility] [id number] [place] [id number] Advance Directives Description No Information Available Problems [...] Sex Unknown Marital Status Legal Status: Occupation [employer] / [employer] Occupation [employer] Volunte[employer] Work Status Full-Time Employment ETOH Use Rarely consumes alcohol Tobacco Use Start: Unknown Patient has never smoked Recreational Drug Use Denies Drug Use Smoking Status Reviewed: 02/25/19 Patient has never smoked Allergies, Adverse Reactions, Alerts Active Allergies Reaction Severity Comments Date Penicillin 05/01/2015 Motrin 05/01/2015 Ceftin 05/01/2015 Theophylline 05/01/2015 Ceclor 05/01/2015 Lorabid 05/01/2015 Bactrim toxic reaction with Tegretol 05/01/2015 Visine 05/01/2015 Augmentin 05/07/2015 Levaquin 05/11/2015 Iodinated Diagnostic Agents 05/11/2015 Alphagan 12/23/2018 Medications Active Medications SIG Qnty Indications Ordering Provider Date Timolol Maleate 1 drop both 10ml Kamari Holland, 02/22/2019 0.5% Solution eyes twice a M.D. day Levetiracetam 4 in the am and Unknown 500mg Tablets 5 in pm Tegretol Unknown 200mg Tablets Tylenol Extra Strength 2 tabs every 3 Unknown 500mg hours Tablets History Medications Vigamox One drop right eye [...] 12/21/2018 - 0.5% day left eye 3 Artemio, O.D. 02/23/2019 Solution Timolol Maleate 1 drop both eyes 45ml Melia Soni 12/19/2018 - 0.25% daily Redgranite, O.D. 12/21/2018 Solution Cosopt PF 1 drop twice daily 180units H40.51x Brielle Barrett 12/13/2018 - both eyes 3 Stockwendy, O.DFaith 12/20/2018 22.3-6.8mg/ml Solution Zioptan 1 drop both eyes 90units H40.51x Brielle Barrett 12/13/2018 - 0.0015% at bedtime 3 Stockwendy, O.D. 01/06/2019 Solution Travatan Z 1 drop left eye 15ml Melia Nae 10/29/2018 - 0.004% every night Artemio, O.D. 12/10/2018 Solution Phenylephrine HCL Instill 1 Drop 4 15ml H40.111 Melia Nae 10/15/2018 - Times A Day In The 3 Redgranite, O.D. 10/27/2018 2.5% Solution Right Eye Prednisolone Acetate [...] Solution Pred Forte one drop 4 Times aKmari Barrett 08/02/2018 - 1% Daily Right Eye [...] 1 drop right eye 15ml Kamari Barrett 05/16/2015 - 1% twice a day Tamara Holland [...] Solution times a day four times only Azopt 1 drop both eyes Kamari Barrett - 1% Suspension twice a day Tamara Holland 05/30/2015 Travatan Z 1 drop left eye Kamari Barrett - 0.004% every night Tmaara Holland 05/30/2015 Solution Alphagan P 1 drop [...] Result H/L Range Note Laboratory test 10/13/2018 [facility] [place] Anaerobic SEE RESULT 1, [address] [address] (607)- - Laboratory test 10/12/2018 [facility] Sclera SEE RESULTS 3, [address] BELO <[place] [address] NOTE> (607)- - CBC Auto Diff 09/10/2018 [facility] White Blood 6.0 10 ^3/uL N 3.5-10.[address] [place] [address] (607)- - Red Blood Count 4.22 10^6/uL [...] Blood Cells % 0 Laboratory test 09/10/2018 [facility] Rheumatoid Factor 17 IU/mL High <[address] [place] [address] (607)- - Acetaminophen < 15 g/mL 5 Syphillis Igg W/Reflex RPR Nonreactive Nonreactive 6 Anca AB Ser If 09/10/2018 [facility] C-Anca Negative Negative [address] [place] [address] (607)- - P-Anca Negative Negative 7 Laboratory test 09/10/2018 [facility] Anti Nuclear 0.2 U [address] [place] [address] (607)- - Hla B27 09/10/2018 [facility] [place] Hla B27 Negative [address] [place] [address] 601)- - Hla B27 Interp See Comment 10 1 [id number] RUSS TRIVEDI 2 SEE RESULT BELOW Name: RUSS TRIVEDI : [address]: Kamari Holland MD Acct: [id number] Unit: [id number] AGE: 48 Location: [facility] Re10/13/18 SEX: F Status: GRIFFIN SDC SPEC: [id number] MONICA: 10/13/18-[address] [facility] [address]: Kamari Holland MD REQ: [id number] RECD: 10/13/18 STATUS: PHIL HERZOG DR: Tish Burt MD _ SOURCE: [facility] SPDESC: ORDERED: Anaerobic Cult COMMENTS: [id number] RUSS TRIVEDI Procedure Result Reported Site CANCELLED REORDERED AN ENVIRONMENTAL CULTURE END OF REPORT DEPARTMENT OF PATHOLOGY, [address] [place] [address] Bandar Roberts M.D. Director [facility] # [id number] 3 PRIMARY OPEN ANGLE GLAUCOMA, RIGHT EYE, SEVERE STA 4 SEE RESULTS BELOW [id number] SCLERA TRANSFUSED 10/13/18 0645 5 Therapeutic concentration: [...] developed and its performance characteristics determined by [facility] in a manner consistent with CLIA requirements. This test has not been cleared or approved by the U.S. Food and Drug Administration. Test Performed by: [facility] [employer] - [address] [address] 8 REFERENCE VALUE <=1.0 (Negative) Test Performed by: [facility] [address] [place] [address] 9 REFERENCE VALUE Not Applicable 10 RESULT: HLA-B27 antigen was not detected. ADDITIONAL INFORMATION Method: Flow Cytometry Performing Laboratory CLIA# [id number] Test Performed by: [address] [address] Procedures Date Code Description Status 02/02/2019 0449T Xen- Shunts Aqueous From The Anterior Chamber To Completed Subcojunctival 01/19/2019 0449T Xen- Shunts Aqueous From The Anterior Chamber To Completed Subcojunctival 12/23/2018 95078 Est Patient Intermediate Exam Completed 10/13/2018 92151 Aqueous Shunt To Extraocular [place] Completed 10/11/2018 06978 Est Patient Intermediate Exam Completed 10/04/2018 01453 Est Patient Intermediate Exam Completed 09/09/2018 14476 Visual Field Exam Extended Completed 09/09/2018 96862 Est Patient Intermediate Exam Completed 09/07/2018 39648 Est Patient Intermediate Exam Completed 08/30/2018 26675 Est Patient Intermediate Exam Completed 08/12/2018 01162 Est Patient Intermediate Exam Completed 08/09/2018 57646 Remove Secondary Cataract, Laser (Yag) Completed 08/02/2018 40414 Est Patient Intermediate Exam Completed 07/16/2018 91034 Est Patient Intermediate Exam Completed 07/02/2018 22547 Est Patient Intermediate Exam Completed 05/07/2018 29026 Est Patient Intermediate Exam Completed 04/26/2018 96359 Est Patient Intermediate Exam Completed 04/02/2018 82808 Visual Field Exam Extended Completed 04/02/2018 80694 Est Patient Intermediate Exam Completed 12/31/2017 81436 Est Patient Intermediate Exam Completed 10/01/2017 39722 Est Patient Intermediate Exam Completed 10/01/2017 77068 Visual Field Exam Extended Completed 08/14/2017 96906 Est Patient Intermediate Exam Completed 05/04/2017 76074 Scanning Computerized Ophthalmic Diagnostic Imag Posterior Completed Seg On 05/04/2017 05326 Visual Field Exam Extended Completed 05/04/2017 96572 Est Patient Intermediate Exam Completed 02/17/2017 47028 Est Patient Intermediate Exam Completed 11/12/2016 33321 Extracapsular Cataract Extraction W/Intraocular Lens Completed 11/12/2016 0191T I-Stent Aqueous Drainage Device Completed 10/21/2016 89607 Ophthalmic Biometry Completed 09/30/2016 40694 Est Patient Intermediate Exam Completed 07/17/2016 48244 Scanning Computerized Ophthalmic Diagnostic Imag Posterior Completed Seg On 07/17/2016 44661 Visual Field Exam Extended Completed 07/17/2016 48648 Est Patient Intermediate Exam Completed 06/24/2016 42751 Est Patient Intermediate Exam Completed 03/05/2016 35403 Fistulization Sclera For Glaucoma, Trabeculectomy AB Completed Externo 11/07/2015 54174 Fistulization Sclera For Glaucoma, Trabeculectomy AB Completed Externo 05/30/2015 31682 Fistulization Sclera For Glaucoma, Trabeculectomy AB Completed Externo 05/09/2015 91763 Fistulization Sclera For Glaucoma, Trabeculectomy AB Completed Externo 05/01/2015 27390 Est Patient Intermediate Exam Completed 05/01/2015 67810 Visual Field Exam Extended Completed 05/01/2015 62259 Scanning Computerized Ophthalmic Diagnostic Imag Posterior Completed Seg On 11/27/2014 75456 Est Patient Intermediate Exam Completed 11/22/2014 54369 Visual Field Exam Extended Completed 08/14/2014 06883 Determination Of Refractive State Completed 08/14/2014 92004 Est Patient Intermediate Exam Completed 05/31/2014 65841 Visual Field Exam Extended Completed 05/18/2014 69104 Patient No Show For Appt Completed 04/04/2014 83298 Est Patient Intermediate Exam Completed 11/17/2013 11641 Est Patient Comprehensive Exam Completed 11/17/2013 70321 Visual Field Exam Extended Completed 11/17/2013 10752 Fundus Photography With Interpretation And Report Completed 07/19/2013 65315 Est Patient Intermediate Exam Completed 04/18/2013 94630 Visual Field Exam Extended Completed 04/18/2013 64396 Est Patient Intermediate Exam Completed 12/02/2012 46199 Trabeculoplasty By Laser Surgery Completed 11/25/2012 12228 Trabeculoplasty By Laser Surgery Completed 11/05/2012 28496 Scanning Computerized Ophthalmic Diagnostic Imag Posterior Completed Seg On 11/05/2012 90358 Visual Field Exam Extended Completed 11/05/2012 26745 Est Patient Comprehensive Exam Completed 06/28/2012 60753 Est Patient Intermediate Exam Completed 01/12/2012 12691 Est Patient Intermediate Exam Completed 01/12/2012 69769 Visual Field Exam Extended Completed 01/12/2012 27139 Scanning Computerized Ophthalmic Diagnostic Imag Posterior Completed Seg On 09/02/2011 39688 Trabeculoplasty By Laser Surgery Completed 08/19/2011 36621 Trabeculoplasty By Laser Surgery Completed 08/01/2011 12168 Visual Field Exam Extended Completed 08/01/2011 91829 Est Patient Intermediate Exam Completed 06/06/2011 25940 Scanning Computerized Ophthalmic Diagnostic Imag Posterior Completed Seg On 06/06/2011 30751 Est Patient Intermediate Exam Completed 02/11/2011 23645 Est Patient Intermediate Exam Completed 2011 46269 Visual Field Exam Extended Completed 03/01/2010 15966 Trabeculoplasty By Laser Surgery Completed 02/21/2010 58222 Trabeculoplasty By Laser Surgery Completed 02/15/2010 20434 Est Patient Intermediate Exam Completed 01/01/2010 23848 Iridotomy/Iredectomy By Laser Surgery Completed 12/28/2009 02677 Iridotomy/Iredectomy By Laser Surgery Completed 12/26/2009 13700 Scanning Laser W/Interp And Report Completed 12/19/2009 36814 Fundus Photography With Interpretation And Report Completed 12/19/2009 31164 Visual Field Exam Extended Completed 12/18/2009 41264 Gonioscopy Completed 12/18/2009 92304 New Patient Comprehensive Exam Completed 12/18/2009 13661 Pachymetry Completed Encounters Type Date Location Provider Dx Diagnosis Office Visit 01/11/2019 Kamari Lomeli, H40.1122 Primary 11:45a , pc MLidia open-angle glaucoma, left eye, moderate stage H40.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 secondary to oth eye disord, r eye, severe stage H40.1122 Primary open-angle glaucoma, left eye, moderate stage Office Visit 01/06/2019 1:30p Kamari Barrett H40.51x3 Glaucoma MD Amalia, chris Holland M.D. 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 open-angle glaucoma, severe stage Office Visit 10/01/2015 2:45p Kamari Barrett H40.11x3 Taurus Holland MD, chris Holland M.D. open-angle glaucoma, severe stage Office Visit 05/24/2015 12:30p Kamari Barrett 365.11 Primary Nikolai Holland MD, chris Holland M.D. Angle Glaucoma 365.73 Severe / Advanced / End Stage Glaucoma Office Visit 05/07/2015 8:45a Kamari Lomeli 365.73 Severe / Advanced chris WAGNER M.D. / End Stage Glaucoma 365.11 Primary Open Angle Glaucoma Office Visit 01/13/2013 1:00p Kamari Lomeli 365.11 Primary Open chris WAGNER M.D. Angle Glaucoma 365.73 Severe / Advanced / End Stage Glaucoma Office Visit 10/14/2011 8:45a Kamari Lomeli 365.11 Primary Open chris WAGNER M.D. Angle Glaucoma 365.73 Severe / Advanced / End Stage Glaucoma Office Visit 06/12/2011 8:30a Kmaari Lomeli, 365.11 Primary Open chris WAGNER M.D. Angle Glaucoma Office Visit 05/28/2010 8:45a Kamari Lomeli 365.11 Primary Open chris WAGNER M.D. Angle Glaucoma Office Visit 03/04/2010 12:45p Nereyda Lomeli, 370.00 Corneal Ulcer , chris OLidia (Infectious) Office Visit 12/26/2009 9:30a Kamari Lomeli 365.11 Primary chris Menchaca MD, M.D. Angle Glaucoma Office Visit 12/19/2009 9:00a Kamari Lomeli, 365.11 Primary chris Menchaca MD, M.D. Angle Glaucoma Office Visit 12/19/2009 8:00a Kamari Lomeli 365.11 Primary chris Menchaca MD, M.D. Angle Glaucoma Plan of Treatment Future [...] directed and keep follow up appointments.Follow up:2 Week Follow Up IOP Check At your next visit, we are not planning to dilate your eyes. However, if you have any changes in your vision or new symptoms, there are certain situations that require us to dilate your eyes. If Dr. Holland requests any additional testing, that may require extra time. If youhave any questions before your next appointment, please call our office at .[phone] Primary open-angle glaucoma, left eye, moderate stageComments: Your glaucoma is borderline at this time in your left eye. This could mean that your eye pressure is higher than your desired target, but not high enough to change your treatment; or your eye pressureis in your target range, but there are questionable changes on your Glaucoma testing.Z96.1 Presence of intraocular lensComments:The artificial lens implants in both eyes appear to be stable at this time.
--- NOTE | 2019-03-24 15:08 | ED ---
HPI Chest Pain - HPI Summary HPI Summary: The patient is a 49 y/o F presenting to [facility] with a chief complaint of sudden onset left anterior CP today starting at 1300. She states she was leaving work when the CP started; it then dissipated to a less severe pain but was still present. Then she was going to pick her up around 1430, and the pain became sharper and was sore like a bruise. The pain is currently rated 6/10 in severity. At the time of worsening, she was also experiencing pain radiating from the chest to the neck, numbness in the left arm, and diaphoresis. She denies nausea, vomiting, SOB, and dizziness. No recent travel. Hx of glaucoma controlled with drops, and seizures that are controlled with Keppra and Tegretol. Fhx of cardiomyopathy in mother who at age 56, and father who is still alive but had open heart surgery in his 60s. Nonsomoker, no EtOH, no substance use. - History of Current Complaint Time Seen by Provider: 03/24/19 14:57 Hx Obtained From: Patient Onset/Duration: Started Hours Ago - at 1300, Still Present Timing: Lasting Hours Initial Severity: Moderate Current Severity: Moderate Pain Intensity: 6 Pain Scale Used: 0-10 Numeric Chest Pain Location: Left Anterior Chest Pain Radiates: Yes Chest Pain Radiates To:: Arm - left, Neck Character: Other: - soreness similar to bruise Aggravating Factor(s): Nothing Alleviating Factor(s): Nothing Associated Signs and Symptoms: Positive: Numbness - in left arm, Diaphoresis, Other: - neck pain. Negative: Dizziness, Shortness of Breath, Nausea, Vomiting - Allergy/Home Medications Allergies/Adverse Reactions: Allergies Allergy/AdvReac Type Severity Reaction Status Date / Time ibuprofen [From Motrin] Allergy Severe Anaphylatic Verified 03/24/19 15:01 Shock Penicillins Allergy Severe Anaphylatic Verified 03/24/19 15:01 Shock amoxicillin [From Augmentin] Allergy Intermediate Rash Verified 03/24/19 15:01 cefaclor [From Ceclor] Allergy Intermediate Rash Verified 03/24/19 15:01 cefuroxime [From Ceftin] Allergy Intermediate Rash Verified 03/24/19 15:01 clavulanic acid Allergy Intermediate Rash Verified 03/24/19 15:01 [From Augmentin] loracarbef [From Lorabid] Allergy Intermediate Rash Verified 03/24/19 15:01 theophylline Allergy Intermediate Rash Verified 03/24/19 15:01 levofloxacin [From Levaquin] Allergy Mild Tendonitis Verified 03/24/19 15:01 Iodinated Contrast- Oral and Allergy Difficulty Verified 03/24/19 15:01 IV Dye Breathing milk Allergy GI Upset Verified 03/24/19 15:01 naphazoline [From Visine-A] Allergy Swelling Verified 03/24/19 15:01 netarsudil [From Rhopressa] Allergy eye Verified 03/24/19 15:01 inflamation pheniramine [From Visine-A] Allergy Swelling Verified 03/24/19 15:01 sulfamethoxazole Allergy See Comment Verified 03/24/19 15:01 [From Bactrim] tafluprost Allergy eyes Verified 03/24/19 15:01 [From Zioptan (PF)] inflamation tetrahydrozoline Allergy eyes swell Verified 03/24/19 15:01 [From Visine] travoprost [From Travatan Z] Allergy eye Verified 03/24/19 15:01 inflammation trimethoprim [From Bactrim] Allergy See Comment Verified 03/24/19 15:01 iv contrast dye Allergy Severe Difficulty Uncoded 02/02/19 07:24 Breathing sapressa Allergy eye Uncoded 02/02/19 07:24 inflamation Home Medications: Home Medications carBAMazepine TAB(*) [TEGretol TAB(*)] 300 mg PO 1400 03/24/19 [History Confirmed 03/24/19] carBAMazepine TAB(*) [TEGretol TAB(*)] 400 mg PO 1830 03/24/19 [History Confirmed 03/24/19] carBAMazepine TAB(*) [TEGretol TAB(*)] 400 mg PO BEDTIME 03/24/19 [History Confirmed 03/24/19] carBAMazepine TAB(*) [TEGretol TAB(*)] 400 mg PO QAM 03/24/19 [History Confirmed 03/24/19] levETIRAcetam TAB* [Keppra TAB*] 2,500 mg PO QAM 03/24/19 [History Confirmed ] levETIRAcetam TAB* [Keppra TAB*] 3,000 mg PO QPM 03/24/19 [History Confirmed ] PMH/Surg Hx/FS Hx/Imm Hx Endocrine/Hematology History: Reports: Other Endocrine/Hematological Disorders - Hodgkin's Denies: Hx Anticoagulant Therapy, Hx Diabetes, Hx Thyroid Disease Cardiovascular History: Denies: Hx Hypertension, Hx Pacemaker/ICD, Other Cardiovascular Problems/ Disorders Respiratory History: Reports: Hx Asthma, Hx Seasonal Allergies Denies: Hx Chronic Obstructive Pulmonary Disease (COPD), Other Respiratory Problems/Disorders GI History: Denies: Other GI Disorders History: Denies: Hx Renal Disease, Other Problems/Disorders Musculoskeletal History: Reports: Hx Arthritis - hips, neck, ankle, Hx Back Problems - chronic low back pain, Hx Orthopedic Injury - (right) knee ACL surgery Denies: Other Musculoskeletal History Sensory History: Reports: Hx Cataracts - left, Hx Contacts or Glasses - glasses , Hx Glaucoma - richard Denies: Hx Hearing Aid Opthamlomology History: Reports: Hx Cataracts - left, Hx Contacts or Glasses - glasses, Hx Glaucoma - richard Neurological History: Reports: Hx Headaches - headache from eye pain, Hx Seizures - last one 12/2018, right arm gets limp, no gran mal for several yrs, Other Neuro Impairments/Disorders - METABOLIC SEIZURES Denies: Hx Dementia Psychiatric History: Denies: Hx Panic Disorder, Hx Substance Abuse - Cancer History Cancer Type, Location and Year: DX. WITH NANCY DISEASE ABOUT 13YEARS AGO Hx Chemotherapy: Yes Hx Radiation Therapy: No - Surgical History Surgery Procedure, Year, and Place: tubal ligation 1996, [facility] [place] right foot fusion x5. several eye surgeries. right hip cyst, age 13. richard eye trabalectomy. right cataract 2014. right eye stent. 10/2108, valve right eye Hx Anesthesia Reactions: No - Immunization History Date of Tetanus Vaccine: UNKOWN Infectious Disease History: Denies: Hx Hepatitis, Hx Human Immunodeficiency Virus (HIV), Traveled Outside the [place] in Last 30 Days - Family History Known Family History: Positive: Cardiac Disease - cardiomyopathy in mother at 56 , father open heart surgery in 60s, Hypertension - Social History Alcohol Use: None Hx Substance Use: No Substance Use Type: Reports: None Hx Tobacco Use: No Smoking Status (MU): Never Smoked Tobacco Do You Chew or Dip Tobacco: No Have You Chewed or Dipped Tobacco in the LAST YEAR: No Have You Smoked in the Last Year: No Review of Systems Positive: Skin Diaphoresis Positive: Chest Pain - left anterior Negative: Shortness Of Breath Negative: Vomiting, Nausea Positive: Other - neck pain radiating from chest Neurological: Other - NEGATIVE: dizziness Positive: Numbness - and tingling in left arm All Other Systems Reviewed And Are Negative: Yes Physical Exam - Summary Physical Exam Summary: VITAL SIGNS: Reviewed. GENERAL: Patient is a well-developed and nourished female who is lying comfortable in the stretcher. Patient is not in any acute respiratory distress. HEAD AND FACE: No signs of trauma. No ecchymosis, hematomas or skull depressions. No sinus tenderness. EYES: PERRLA, EOMI x 2, No injected conjunctiva, no nystagmus. EARS: Hearing grossly intact. Ear canals and tympanic membranes are within normal limits. MOUTH: Oropharynx within normal limits. NECK: Supple, trachea is midline, no adenopathy, no JVD, no carotid bruit, no c- spine tenderness, neck with full ROM. CHEST: Symmetric, no tenderness at palpation LUNGS: Clear to auscultation bilaterally. No wheezing or crackles. CVS: Regular rate and rhythm, S1 and S2 present, no murmurs or gallops appreciated. ABDOMEN: Soft, non-tender. No signs of distention. No rebound no guarding, and no masses palpated. Bowel sounds are normal. EXTREMITIES: FROM in all major joints, no edema, no cyanosis or clubbing. NEURO: Alert and oriented x 3. No acute neurological deficits. Speech is normal and follows commands. SKIN: Dry and warm. Triage Information Reviewed: Yes Vital Signs Reviewed: Yes Diagnostics - Laboratory Result Diagrams: 03/24/19 15:46 03/24/19 15:46 Lab Statement: Any lab studies that have been ordered have been reviewed, and results considered in the medical decision making process. - EKG 1500 Cardiac Rate: Bradycardia - 59 BPM EKG Rhythm: Sinus Bradycardia EKG Comparison: No Significant Change - Similar to EKG taken on 09/28/2018 Summary of EKG Findings: T-wave inversions in V2, no ST elevations Re-Evaluation - Re-Evaluation First Eval Re-Evaluation Time: 18:30 Change: Unchanged Comment: I spoke with the patient concerning results and discharge home. Chest Pain Course/Dx - Course Assessment/Plan: The patient is a 49 y/o F presenting to [facility] with a chief complaint of sudden onset left anterior CP today starting at 1300. She states she was leaving work when the CP started; it then dissipated to a less severe pain but was still present. Then she was going to pick her up around 1430, and the pain became sharper and was sore like a bruise. The pain is currently rated 6/10 in severity. At the time of worsening, she was also experiencing pain radiating from the chest to the neck, numbness in the left arm , and diaphoresis. She denies nausea, vomiting, SOB, and dizziness. No recent travel. Hx of glaucoma controlled with drops, and seizures that are controlled with Keppra and Tegretol. Fhx of cardiomyopathy in mother who at age 56 , and father who is still alive but had open heart surgery in his 60s. Nonsomoker, no EtOH, no substance use. Blood work without any significant abnormality except for sodium level of 1:30, chloride of 96, and 2 troponins 4 hours apart as 0.00. Therefore I have low suspicion for acute, MT syndrome. The heart score is equal to 1, which is a low probability for an acute coronary syndrome. Patient is not hypoxic or tachycardic, therefore I have no suspicion for pulmonary embolism. Patient reports that all symptoms have resolved. Because the patient has no significant comorbidities and no family history of cardiovascular disease at her age, the patient will be discharged home with follow up with PCP. I discussed all the findings and test results with the patient. Patient was instructed to return to the emergency room immediately if any of the symptoms return or worsens. Patient understands and agrees. Plan of care was discussed with the patient and patient understands and agrees. All questions were answered at patient satisfaction. There were no further complaints or concerns. PE before discharge: CVS: S1 and S2 present. No murmurs appreciated. Abdominal exam before discharge: Soft, non-tender. No signs of distention. No rebound no guarding, and no masses palpated. Bowel sounds are normal. Patient is alert and oriented x 3. Patient is hemodynamically stable. - Chest Pain Differential Diagnosis/HQI/PQRI: Acute MT, ACS, Angina, CHF, Chest Wall, GI Disease, Lower Respiratory Infection, Pulmonary Edema - Diagnoses Provider Diagnoses: Atypical chest pain Discharge - Sign-Out/Discharge Documenting (check all that apply): Patient Departure - Patient will be discharged home. Patient Received Moderate/Deep Sedation with Procedure: No - Discharge Plan Condition: Stable Disposition: HOME Patient Education Materials: Chest Pain (DC) Referrals: Tish Burt MD [Primary Care Provider] - 3 Days Additional Instructions: FOLLOW UP WITH YOUR PRIMARY CARE PROVIDER WITHIN ONE WEEK. RETURN TO THE ED FOR ANY WORSENING OR NEW SYMPTOMS. - Billing Disposition and Condition Condition: STABLE Disposition: Home - Attestation Statements Document Initiated by Scribe: Yes Documenting Scribe: Mimi Michaud Provider For Whom Abhijeet is Documenting (Include Credential): Dr. Yunior Duarte MD Scribe Attestation: Mimi Pulido, scribed for Dr. Yunior Duarte MD on 03/24/19 at 2203. Scribe Documentation Reviewed: Yes Provider Attestation: The documentation as recorded by the Mimi pepe accurately reflects the service I personally performed and the decisions made by me, Dr. Yunior Duarte MD Status of Scribe Document: Viewed
[2019-03-24 15:57] LABS: ABS Eosinophils 0.2 10^3/ul (0-0.6); ABS Lymphocytes 1.5 10^3/ul (1.0-4.8); ABS Monocytes 0.5 10^3/ul (0-0.8); ABS Neutrophils 3.4 10^3/ul (1.5-7.7); Eosinophil % 4.4 %; Hematocrit 36 % (35-47); Hemoglobin 12.3 g/dL (12.0-16.0); Lymphocyte % 26.8 %; Mean Corpuscular HGB Conc 35 g/dL (31-36); Mean Corpuscular Hemoglobin 31 pg (27-31); Mean Corpuscular Volume 89 fL (80-97); Mean Platelet Volume 5.8 fL (7.4-10.4); Nucleated Red Blood Cells % 0.2; Platelet Count 310 10^3/uL (150-450); Red Cell Distribution Width 12 % (10.5-15); White Blood Count 5.7 10^3/uL (3.5-10.8)
[2019-03-24 16:03] LABS: INR 0.97 (0.82-1.09)
[2019-03-24 16:16] LABS: Albumin/Globulin Ratio 1.4 (1-3); BUN/Creatinine Ratio 27.3 (8-20); Calcium 8.9 mg/dL (8.6-10.3); EGFR African American 141.6 (>60); Globulin 2.8 g/dL (2-4); Potassium 3.6 mmol/L (3.5-5.0); Total Bilirubin 0.3 mg/dL (0.2-1.0); Total Protein 6.8 g/dL (6.4-8.9)
[2019-03-24 18:42] VITALS: BP 120/66
== END | disposition home or self-care (01) ==
LOC: ED 14:53
DX: R07.89 Other chest pain (principal); C81.90 Hodgkin lymphoma, unspecified, unspecified site; J45.909 Unspecified asthma, uncomplicated; Z88.6 Allergy status to analgesic agent; Z88.0 Allergy status to penicillin; Z88.3 Allergy status to other anti-infective agents; Z88.8 Allergy status to other drugs, medicaments and biological substances; Z91.041 Radiographic dye allergy status; Z88.2 Allergy status to sulfonamides
CPT/HCPCS: 36415; 80053; 84484; 85025; 85610; 93005; 99283